=== PATIENT | female | born 1930 | race Caucasian/White ===

== ENCOUNTER 2016-07-30 11:32 | Inpatient (IN) | payer MEDICARE ==
--- NOTE | 2016-07-30 14:31 | RAD ---
Indication: Hypoglycemia. Single frontal view of the chest performed at 1359 hours was reviewed. Comparison is made with previous exam dated March 05, 2015. No mediastinal shift is noted. Airspace disease is noted in the left base. Right lung field is clear. No pneumothorax is noted. IMPRESSION: FINDINGS CONSISTENT WITH LEFT LOWER LOBE PNEUMONIA. ELEVATED LEFT HEMIDIAPHRAGM IS NOTED.
[2016-07-30] MEDS: NS 0.9% 1000 ML* 1,000 ML IV SCH (14:42)
[2016-07-30 16:00] LABS: Hematocrit 44 % (35-47); Hemoglobin 14.3 g/dl (12.0-16.0); Mean Corpuscular HGB Conc 32 g/dl (31-36); Mean Corpuscular Hemoglobin 29 pg (27-31); Mean Corpuscular Volume 91 fL (80-97); Mean Platelet Volume 10 um3 (7.4-10.4); Red Blood Count 4.87 10^6/ul (4.0-5.4); Red Cell Distribution Width 14 % (10.5-15); White Blood Count 9.8 10^3/ul (3.5-10.8)
[2016-07-30 16:18] LABS: Urine Bacteria 1+ (Absent); Urine Bilirubin Negative (Negative); Urine Glucose Negative (Negative); Urine Nitrite Negative (Negative)
[2016-07-30 16:19] LABS: Albumin 3.3 g/dL (3.2-5.2); BUN/Creatinine Ratio 15.8 (8-20); C Reactive Protein 3.82 mg/L (< 5.00); Calcium 9.2 mg/dL (8.6-10.3); EGFR African American 72.2 (>60); EGFR Non-African American 56.2 (>60); Globulin 3.4 g/dL (2-4); Magnesium 2.1 mg/dL (1.9-2.7); Potassium 4.4 mmol/L (3.5-5.0); Total Bilirubin 0.4 mg/dL (0.2-1.0); Total Protein 6.7 g/dL (6.4-8.9)
[2016-07-30 16:22] LABS: Troponin I 0.01 ng/mL (<0.04)
[2016-07-30 16:57] LABS: TSH (Thyroid Stimulating Horm) 1.2 mcIU/mL (0.34-5.60)
[2016-07-30] MEDS ORDERED: cefTRIAXone(*) 1 GM in NS 0.9% 50 ML* 50 ML IVPB ONE (17:01)
[2016-07-30] MEDS ORDERED: Levofloxacin 750 MG IVPREMIX(* 750 MG/150 ML BAG IVPB ONE (17:02)
--- NOTE | 2016-07-30 17:38 | ED ---
Florentino Looney Billy, scribed for Jack Haywood MD on 07/30/16 at 1340 . HPI Diabetic - HPI Summary HPI Summary: Patient is an 85 year-old female coming to [facility] presenting with a diabetic complaint since approximately 1830 last night. Family states that the patient was "shakey" at that time, and BG was measured at 490. Family reports that the patient takes long-acting insulin in the mornings, and BG improved later that evening. However, when she awoke this morning, BG was measured at 67 and she continued to have diffuse shakes. She denies any fevers, chills, cough, or chest congestion. Denies urinary frequency, urgency, or dysuria. Family notes diarrhea this morning. Patient complaints of general weakness. - History Of Current Complaint Chief Complaint: EDDiabeticProb Time Seen by Provider: 07/30/16 11:46 Hx Obtained From: Patient Onset/Duration: Gradual Onset, Lasting Hours, Still Present Timing: Constant Severity Initially: Moderate Severity Currently: Moderate Character: Alert, Other - general weakness Aggravating: Nothing Alleviating: Nothing - Allergies/Home Medications Allergies/Adverse Reactions: Allergies Allergy/AdvReac Type Severity Reaction Status Date / Time Iodinated Contrast Media Allergy Severe UNKNOWN Verified 03/25/12 09:34 [CONTRAST DYE] REACTION Codeine Allergy Unknown Verified 01/17/15 16:21 Reaction Details Penicillins Allergy Unknown Verified 01/17/15 16:21 Reaction Details Azithromycin AdvReac Nausea Verified 01/17/15 14:29 CI Pigment Blue 63 AdvReac N/V Verified 01/17/15 13:40 [From Pradaxa] PMH/Surg Hx/FS Hx/Imm Hx Endocrine/Hematology History: Reports: Hx Anticoagulant Therapy, Hx Diabetes, Hx Thyroid Disease Cardiovascular History: Reports: Hx Hypertension, Other Cardiovascular Problems/ Disorders - IDDM II, AFIB on monitor Respiratory History: Reports: Hx Chronic Bronchitis GI History: Reports: Hx Gastroesophageal Reflux Disease - ON MEDICATION FOR, Hx Hiatal Hernia, Hx Irritable Bowel, Hx Ulcer - IN THE PAST Musculoskeletal History: Reports: Hx Arthritis, Other Musculoskeletal History - s4 FX Denies: Hx Osteoporosis Sensory History: Reports: Hx Contacts or Glasses Denies: Hx Hearing Aid Opthamlomology History: Reports: Hx Contacts or Glasses Neurological History: Reports: Hx Dementia, Other Neuro Impairments/Disorders - forgetful - Cancer History Cancer Type, Location and Year: rt breast radical mastectomy with chemo Hx Chemotherapy: Yes - BREAST Hx Radiation Therapy: No - Surgical History Surgery Procedure, Year, and Place: RIGHT RADICAL MASTECTOMY. LEFT KNEE BULGE REMOVED. AFIB ABLATION-AND ALSO HAD BLEEDING AROUND HEART- SURGERY TO STOP BLEEDING [place]. APPENDECTOMY. OVARIAN CYST REMOVED. TUBAL LIGATION. TONSILLECTOMY- AGE 32 Hx Anesthesia Reactions: Yes - CODEINE CAUSED N/V Infectious Disease History: No Infectious Disease History: Denies: Traveled Outside the [place] in Last 30 Days - Family History Known Family History: Positive: Other - breast cancer - Social History Alcohol Use: None Substance Use Type: Reports: None Hx Tobacco Use: No Smoking Status (MU): Never Smoked Tobacco Review of Systems Positive: Other - shaking. Negative: Chills Negative: Chest Pain Negative: Cough Positive: Diarrhea. Negative: Abdominal Pain Negative: dysuria, frequency, urgency Positive: Weakness All Other Systems Reviewed And Are Negative: Yes Physical Exam Triage Information Reviewed: Yes Vital Signs On Initial Exam: Temp Pulse Resp BP Pulse Ox 98.9 F 57 13 130/56 97 07/30/16 12:11 07/30/16 12:11 07/30/16 12:11 07/30/16 12:11 07/30/16 12:11 Vital Signs Reviewed: Yes Appearance: Positive: Well-Appearing, No Pain Distress Skin: Positive: Warm, Skin Color Reflects Adequate Perfusion, Dry Head/Face: Positive: Normal Head/Face Inspection Eyes: Positive: EOMI, ALISTAIR ENT: Positive: Normal ENT inspection Neck: Positive: Supple, Nontender Respiratory/Lung Sounds: Positive: Clear to Auscultation, Breath Sounds Present Cardiovascular: Positive: Bradycardia Abdomen Description: Positive: Nontender, Soft Musculoskeletal: Positive: Strength/ROM Intact - Patient is shaky when asked to sit up. Neurological: Positive: Normal, Sensory/Motor Intact, Alert, Oriented to Person Place, Time Psychiatric: Positive: Affect/Mood Appropriate - [place] Coma Scale Coma Scale Total: 15 Diagnostics - Vital Signs Vital Signs Temp Pulse Resp BP Pulse Ox 07/30/16 12:11 98.9 F 57 13 130/56 97 07/30/16 12:03 98.9 F 58 17 130/56 94 07/30/16 12:00 57 13 130/56 95 07/30/16 11:43 14 133/49 - Laboratory Lab Results: Lab Results 07/30/16 Range/Units 11:44 POC Glucose (mg/dL) 121 H (74-106) mg/dL Result Diagrams: 07/30/16 15:50 07/30/16 15:50 Lab Statement: Any lab studies that have been ordered have been reviewed, and results considered in the medical decision making process. - Radiology CXR Radiology Interpretation Completed By: Radiologist - FINDINGS CONSISTENT WITH LEFT LOWER LOBE PNEUMONIA. ELEVATED LEFT HEMIDIAPHRAGM IS NOTED. Re-Evaluation - Re-Evaluation First Eval Re-Evaluation Time: 16:56 Change: Improved Diabetic Course/Dx - Course Assessment/Plan: PATIENT WEAK IN ED. ADMIT HOSPITALIST STABLE. - Diagnoses Provider Diagnoses: Pneumonia, Weakness - Physician Notifications Discussed Care of Patient With: Dr. Barros (hospitalist) @ 1700: accepts admission. Discharge - Discharge Plan Condition: Stable Disposition: ADMITTED TO [facility] documentation as recorded by the Florentino archuleta Billy accurately reflects the service I personally performed and the decisions made by me, Jack Haywood MD.
--- NOTE | 2016-07-30 18:26 | PN ---
Hospitalist Progress Note HOSPITALIST ADDENDUM Case reviewed and d/w Ashu PALUMBO. Mrs. Paredes is an 85yo F with PMH of breast CA, Afib, type 2 DM (on insulin) BIB family due to tremors and glucose fluctuation. Labs and imaging reviewed. CxR shows a LLL infiltrate but her respiratory symptoms are minimal. Will admit, treat pneumonia, monitor glucose. Will check [employer]ACILITY ATTENDANT imaging, but no clear etiology for her tremors at this time. Agree with current management.
[2016-07-30] MEDS: Azithromycin IV(*) 500 MG in NS 0.9% 250 ML* 250 ML IVPB SCH (18:30)
--- NOTE | 2016-07-30 19:30 | RAD ---
Indication: Tremor. CT of the brain was performed without IV contrast. Comparison is made with previous exam dated January 12, 2013. Ventricular structures are midline. No midline shift is noted. The extra-axial spaces are unremarkable. There is no evidence of intracranial mass or hemorrhage. No other high or low density lesions are identified. The bony calvaria are otherwise unremarkable. Overall no changes noted since previous exam of January 12, 2013. IMPRESSION: No intracranial mass or hemorrhage is noted. Atrophy is noted.
--- NOTE | 2016-07-30 21:12 | HP ---
ADMISSION HISTORY AND PHYSICAL: DATE OF ADMISSION: 07/30/16 PRIMARY CARE PROVIDER: Not listed. ADMITTING PROVIDER: DEEPALI George SUPERVISING PHYSICIAN: Aziza Mcgarry MD.* (DICTATED BY DEEPALI GEORGE) CHIEF COMPLAINT: Shaking. HISTORY OF PRESENT ILLNESS: This is an 85-year-old female with mild dementia, insulin-dependent diabetes, hypothyroidism, remote history of breast cancer, status post mastectomy as well as diastolic heart failure, hypertension, and hyperlipidemia who presented to the emergency department with complaints of episodes of shaking. First episode occurred spontaneously last night while seated and was witnessed by her . All 4 extremities were involved. The patient maintained normal level of consciousness and reported that her movements were uncontrollable. She had no other associated neurologic complaints in terms of recent weakness, numbness, tingling, or fatigue. She denies any recent acute illness including abdominal pain, nausea, vomiting or diarrhea. Perhaps a slightly worse cough than what was typical for her, but denies dyspnea or chest pain. At the time that the shaking episode occurred, her checked her glucose and it was measured at 490 mg/dL. She does not have any short-acting insulin and nothing was given at the time. The decision was made to just wait it out and see if she is improved. In the morning, they checked her glucose again and it was 67 mg/dL and she had another shaking episode. She was given apple juice and peanut butter at that time in an attempt to increase her glucose and her glucose darin into the mid 100s and she had another shaking episode. In the emergency department, her shaking episodes are easily reproduced with position changes. As simple as raising the head of her bed can induce a generalized shaking episode. The patient denies any complaints during them. She has had no history of similar symptoms and again no recent illness or other acute neurologic complaints. PAST MEDICAL HISTORY: 1. Atrial fibrillation, anticoagulated with Coumadin. 2. Hypertension. 3. Insulin dependent diabetes. 4. Hypothyroidism. 5. Hyperlipidemia. 6. Remote history of breast cancer status post mastectomy. 7. Tscd-vk-hxjpgfip dementia. 8. Diastolic heart failure. PAST SURGICAL HISTORY: 1. Right mastectomy. 2. Appendectomy. 3. Tubal ligation. HOME MEDICATIONS: 1. Aricept 5 mg p.o. daily. 2. Lexapro 20 mg p.o. daily. 3. Breo Ellipta 1 puff daily. 4. Lasix 40 mg p.o. daily. 5. Insulin degludec, which is a 200 units/mL solution with instructions to take 40 units subcu daily. 6. Levothyroxine 100 mcg p.o. daily. 7. Lisinopril 2.5 mg p.o. daily. 8. Namenda 10 mg p.o. twice daily. 9. Metoprolol succinate 25 mg p.o. daily. 10. Potassium chloride 10 mEq p.o. daily. 11. Aciphex 20 mg p.o. daily. 12. Crestor 5 mg p.o. daily. 13. Coumadin 1 mg alternating with 2 mg. SOCIAL HISTORY: The patient lives at home with her . Her children including her daughter and son as well as her xjfehuhr-km-jez are quite involved in her care and live locally. She denies any smoking history and no regular alcohol consumption. REVIEW OF SYSTEMS: As listed above in HPI. PHYSICAL EXAMINATION GENERAL: This is a very pleasant elderly female, in no acute distress, accompanied by family. VITAL SIGNS: Initial vitals; temperature 98.9 degrees Fahrenheit, pulse 58 beats per minute, respiratory rate 17 per minute, oxygen saturation 94% on room air, and blood pressure 130/56 mmHg. HEENT: The patient has dentures in place. Mucous membranes are pink and moist. NECK: Neck is supple and free of lymphadenopathy without JVD. RESPIRATORY: Lungs are fairly clear to auscultation without wheezes, crackles, or rhonchi. CARDIOVASCULAR: Heart has a regular rate and rhythm without obvious murmurs, rubs, or gallops. ABDOMEN: Abdomen is soft and nontender to palpation. EXTREMITIES: The patient has 1 to 2+ lower extremity edema bilaterally. PSYCH: The patient is alert, unsure of her level of orientation, but she seems to be quite easily confused. SKIN: Limited exam shows no concerning rashes or lesions. NEURO: The patient has an inducible tremor with any sort of exertion. Specifically when she is asked to provide the level of effort such as rolling onto her side or attempting to sit up, she gets a generalized rhythmic movement throughout all of her extremities. She does not complain of any pain or discomfort with this and she remained as an appropriate level of alertness. The shaking will resolve as soon as she is laid back down into a dependent position. Cranial nerves II through XII are intact and she has no other obvious focal neurologic deficits. LABORATORY EVALUATION: CBC shows white blood cell count of 9800, hemoglobin of 14.3 g/dL, and a platelet count of 131,000. INR of 1.37. Comprehensive metabolic panel is unremarkable with sodium of 136 mmol/L, potassium 4.4, BUN 15 , creatinine 0.95 with an estimated GFR of 56. Random glucose of 145 mg/dL. Lactic acid of 1.1. Transaminases and total bilirubin within normal limits. Magnesium normal at 2.1. TSH normal at 1.2. Troponin negative at 0.01. CRP unremarkable at 3.8. Urinalysis is positive for leukocyte esterase and otherwise negative. IMAGING: Chest x-ray shows left lower lobe infiltrate. EKG is pending. CT of the head is pending. ASSESSMENT AND PLAN: This is an 85-year-old female with insulin dependent diabetes, hypothyroidism, pmgv-ct-wqfeedlf dementia, diastolic heart failure, remote history of breast cancer, atrial fibrillation anticoagulated with Coumadin, hypertension, hyperlipidemia who presents with the shaking episodes, has evidence of a left lower lobe pneumonia appreciated on chest x-ray. The patient will be admitted to observation status for a community-acquired pneumonia and tremor activity. 1. Community-acquired pneumonia - evidence of left lower lobe infiltrate on chest x-ray. No leukocytosis. The patient denies any really recent acute changes. She does have a cough, but seems like that is chronic for her. CRP is unremarkable. Procalcitonin is pending. We will plan to empirically treat for a pneumonia in this case based on her chest x-ray. We will plan to repeat labs again tomorrow. 2. Generalized tremor - the patient has an inducible, seemingly intention type tremor. She requested a CT scan of her brain. Requested neurologic consultation. No electrolyte disturbance. This seems unlikely to be seizure activity based on its appearance. It does not seem to be rigors or really associated with acute infarction as she does not appear to be severely ill nor is she febrile and the tension is clearly inducible and resolves with a change in position. 3. Abnormal urinalysis - urine culture is pending at this time. 4. Atrial fibrillation. The patient is appropriately rate controlled at this time. Anticoagulated with Coumadin, but her INR is significantly subtherapeutic. We will not plan to bridge her issues, not high risk, but we will simply increase her dose of Coumadin and monitor her INR daily. 5. Hypothyroidism - TSH is within normal limits. 6. History of chronic diastolic heart failure without evidence of acute exacerbation. We will plan to continue her home Lasix dosing. 7. Remote history of breast cancer with right mastectomy and chronic right- sided lymphedema. 8. Idok-gi-blluoxik dementia without significant behavioral concerns. 9. Hypertension. 10. Hyperlipidemia. 11. Code status is full. 12. Healthcare proxy is the patient's . 13. DVT prophylaxis. This patient is anticoagulated with Coumadin. We will increase her dose, but does not require additional prophylaxis. DISPOSITION: The patient is being admitted to observation status with likely discharge tomorrow following neurology consultation. DEEPALI GEORGE [id number]/CPS #: [id number] MTDMorelia
[2016-07-31] MEDS: Memantine TAB* 10 MG PO SCH ×3 (00:32→20:26)
[2016-07-31] MEDS: Azithromycin IV(*) 500 MG in NS 0.9% 250 ML* 250 ML IVPB SCH ×3 (00:45→20:25)
[2016-07-31] MEDS: NS 0.9% 1000 ML* 1,000 ML IV SCH ×3 (00:46→17:30)
[2016-07-31] MEDS: Levothyroxine TAB* 100 MCG TAB PO SCH (05:56)
[2016-07-31 09:38] LABS: Hematocrit 40 % (35-47); Hemoglobin 13.2 g/dl (12.0-16.0); Mean Corpuscular HGB Conc 33 g/dl (31-36); Mean Corpuscular Hemoglobin 30 pg (27-31); Mean Corpuscular Volume 90 fL (80-97); Mean Platelet Volume 11 um3 (7.4-10.4); Red Blood Count 4.47 10^6/ul (4.0-5.4); Red Cell Distribution Width 14 % (10.5-15); White Blood Count 8.9 10^3/ul (3.5-10.8)
[2016-07-31 09:55] LABS: BUN/Creatinine Ratio 15.7 (8-20); Calcium 8.6 mg/dL (8.6-10.3); EGFR African American 77.9 (>60); EGFR Non-African American 60.6 (>60); Potassium 3.9 mmol/L (3.5-5.0)
[2016-07-31] MEDS: Metoprolol Succinate XL TAB* 25 MG PO SCH (10:05)
[2016-07-31] MEDS: Lisinopril TAB* 5 MG PO SCH (10:05)
[2016-07-31] MEDS: Furosemide TAB* 40 MG PO SCH (10:06)
[2016-07-31] MEDS: CMCS Escitalopram (NF) 10 MG TAB PO SCH (10:07)
[2016-07-31] MEDS: Donepezil TAB* 5 MG PO SCH (10:07)
[2016-07-31] MEDS: Atorvastatin* 10 MG TAB PO SCH (10:08)
[2016-07-31] MEDS: Potassium Chlor TAB* 10 MEQ TAB.ER PO SCH (10:09)
[2016-07-31] MEDS: Fluticasone/Vilanterol MDI(NF) 100/25 MDI INH SCH (10:36)
[2016-07-31] MEDS: INSULIN DEGLUDEC SUBCUT SCH (11:21)
--- NOTE | 2016-07-31 15:47 | CONS ---
NEUROLOGY CONSULTATION REPORT: DATE OF CONSULT: 07/31/16 REASON FOR CONSULT: Generalized shaking. REQUESTING PROVIDER: DEEPALI Duran HISTORY OF PRESENT ILLNESS: The patient is an 85-year-old right-handed female who was brought to the hospital because of episodes described as shaking in the body. First episode occurred the night before admission, on Wednesday night, when she was sitting in a chair and when she was trying to get up her body started to having a generalized shaking. She remained awake and alert throughout that episode that lasted for a few minutes but was just not able to stop the shaking. Her blood glucose was checked at that time and was not low. She had another episode yesterday morning and the glucose was 67 at that time. In the ED, the episodes were reproducible when she was made to change her position from lying to sitting up. Initial workup in the ED showed some radiographic findings of pneumonia. She feels better today and her symptoms have not been as severe as yesterday. She did not have similar episodes in the past. At her baseline, she uses a walker at home for ambulation. She need help with her showers and dressing at home. PAST MEDICAL HISTORY: Significant for: 1. AFib, on Coumadin. 2. Diabetes type 2. 3. Hypothyroidism. 4. Hyperlipidemia. 5. Hypertension. 6. History of breast cancer, status post mastectomy. 7. Mild dementia. 8. Diastolic heart failure. 9. Chronic Lymphedema in the right arm post right mastectomy (stable) PAST SURGICAL HISTORY: 1. Right mastectomy. 2. Appendectomy. 3. Tubal ligation. ALLERGIES: 1. IODINE CONTRASTS. 2. CODEINE. 3. PENICILLIN. 4. AZITHROMYCIN. FAMILY HISTORY: Mother had history of breast cancer. There is no significant neurological history in the family. SOCIAL HISTORY: The patient lives at home with her . She does not have history of smoking. No history of alcohol use. REVIEW OF SYSTEMS: A complete review of systems was performed and other than what mentioned above is negative. PHYSICAL EXAM: Blood pressure 139/51, temperature 98.4, heart rate 67, respiratory rate 20, and oxygen 95%. The patient is awake, alert, and oriented to time and place. Pupils are symmetric and reactive to light. Visual meredith are intact by confrontation. Extraocular movements are intact. No nystagmus were noted. Face is symmetric. V1 to V3 is intact to light touch and pinprick. Tongue is in midline. Palate elevates upwards. There is no resting tremor. There is no action tremor on hkhnxt-ac-lymr. There is no postural tremor. Muscle tone is normal. The right arm is slightly larger in diameter compared to the left arm, which is chronic due to the mastectomy on the right side. Rapid alternative movements are intact. Muscle strength is 5/5 throughout. There is no pronator drift. Sensation is intact to light touch, pinprick, and vibration in the upper and lower extremities. Deep tendon reflexes are 2+ in the upper and lower extremities and are symmetric. Heel-to- ren is intact bilaterally. Upon standing and sitting up, the patient feels slightly lightheaded and 'dizzy'. She is able to stand up. After standing up for about 30-60 seconds, she starts to have some bouncing like movements in the legs and the entire body, which can be stopped if she is helped to maintain her position. She is able to take a few steps with assistance with relatively narrow- based gait. LABORATORY DATA: Sodium 140, potassium 3.9, BUN 14, and creatinine 0.9. INR 1.81. WBC 8.9, hemoglobin 13.2, hematocrit 40, and platelets 135. Urine is 1+ bacteria, trace rbc, and trace wbc. DIAGNOSTIC STUDIES/IMAGING: Brain CT shows mild atrophy with no acute findings. Chest x-ray yesterday, on 07/30/16, showed left lower lobe pneumonia and elevated left hemidiaphragm. ASSESSMENT AND PLAN: The patient is an 85-year-old female with baseline dementia and some baseline walking problem at home (ambulating with a walker), has been noted to have a few episodes of shaking upon repositioning to a sitting or standing since about 2 days ago. She is better today. Currently, the neurological exam is unremarkable and nonfocal. The episodes are reproducible by standing up for more than 30-60 seconds, manifesting as bouncing movements on her legs. The patient also feels symptomatic ( lightheadedness and dizziness) upon change of position, specially standing up. Otherwise, the neurological exam is intact. I have the impression that these episodes are related to the patient's general deconditioning and general fatigue with some contribution of probably orthostatic hypotension. Neurologically, I do not believe there is any underlying pathology that can explain her symptoms. [id number] #: [id number] MTDD
[2016-07-31] MEDS: Warfarin TAB(*) 2 MG PO SCH (17:02)
--- NOTE | 2016-07-31 17:54 | PN ---
Subjective Date of Service: 07/31/16 Interval History: Patient reports improvement, but still unsteady on her feet and can reproduce the tremor with standing for ~30 sec. She denies cough, SOB, abdominal pain, n/ v. Objective Active Medications: Acetaminophen (Tylenol Tab*) 650 mg PO Q4H PRN PRN Reason: FEVER/PAIN Atorvastatin Calcium (Lipitor*) 10 mg PO DAILY [facility] PRN Reason: Protocol Last Admin: 07/31/16 10:08 Dose: 10 mg Donepezil HCl (Aricept Tab*) 5 mg PO DAILY [facility] Last Admin: 07/31/16 10:07 Dose: 5 mg Escitalopram Oxalate (Lexapro (Nf)) 20 mg PO DAILY [facility] Last Admin: 07/31/16 10:07 Dose: 20 mg Fluticasone/Vilanterol (Breo Ellipta Mdi 100/25(Nf)) 1 puff INH DAILY [facility] Last Admin: 07/31/16 10:36 Dose: Not Given Furosemide (Lasix Tab*) 40 mg PO DAILY [facility] Last Admin: 07/31/16 10:06 Dose: 40 mg Sodium Chloride (Ns 0.9% 1000 Ml*) 1,000 mls @ 150 mls/hr IV PER RATE [facility] Last Admin: 07/31/16 17:30 Dose: 150 mls/hr Ceftriaxone Sodium 1,000 mg/ (Sodium Chloride) 50 mls @ 200 mls/hr IVPB Q24H [facility] Last Admin: 07/31/16 17:02 Dose: 200 mls/hr Azithromycin 500 mg/ Sodium (Chloride) 250 mls @ 250 mls/hr IVPB 2100 [facility] Last Admin: 07/31/16 00:45 Dose: 250 mls/hr Levothyroxine Sodium (Synthroid Tab*) 100 mcg PO 0600 [facility] Last Admin: 07/31/16 05:56 Dose: 100 mcg Lisinopril (Prinivil Tab*) 2.5 mg PO DAILY [facility] Last Admin: 07/31/16 10:05 Dose: 2.5 mg Memantine (Namenda Tab*) 10 mg PO BID [facility] Last Admin: 07/31/16 10:08 Dose: 10 mg Metoprolol Succinate (Toprol Xl Tab*) 25 mg PO DAILY [facility] Last Admin: 07/31/16 10:05 Dose: 25 mg Pto Nf Med* (Insulin Degludec [Tresiba Flextouch] 40 Unit) 40 unit SUBCUT QAM [facility] Last Admin: 07/31/16 11:21 Dose: 40 unit Potassium Chloride (Klor Con Er Tab*) 10 meq PO DAILY [facility] Last Admin: 07/31/16 10:09 Dose: 10 meq Warfarin Sodium (Coumadin Tab(*)) 2 mg PO 1700 [facility] PRN Reason: Protocol Last Admin: 07/31/16 17:02 Dose: 2 mg Vital Signs: Temp Pulse Resp BP Pulse Ox 98.9 F 74 16 151/52 94 07/31/16 15:18 07/31/16 15:18 07/31/16 15:38 07/31/16 15:18 07/31/16 15:18 Appearance: Well appearing elderly female in NAD. Accompanied by her daughter. Sitting up in bed. Respiratory: Symmetrical Chest Expansion and Respiratory Effort Cardiovascular: NL Sounds; No Murmurs; No JVD, RRR Abdominal: NL Sounds; No Tenderness; No Distention Extremities: No Edema Neurological: - - tremor reproduced with some stress. Alert, but not oriented Result Diagrams: 07/31/16 09:19 07/31/16 09:19 Additional Lab and Data: Lab Results 07/30/16 Range/Units 11:44 POC Glucose (mg/dL) 121 H (74-106) mg/dL Diagnostic Imaging: CXR - LLL infiltrate CT brain - NAD Assess/Plan/Problems-Billing Assessment: This is an 85 yo female with dementia, HTN, DM, hypothyroidism, HLD, and chronic diastolic HF who presented with concerns of a generalized tremor that started spontaneously. - Patient Problems (1) Tremor Comment: Significantly improved but still reproducible during times of stress Appreciate neuro consult who believes this may just be manufacturer's service representative of systemic fatigue v. orthostatis Ordered orthostatic vital signs and requested PT consult Patient still feels too unsteady to safely return home (2) Pneumonia Comment: Evidence of LLL infiltrate on CXR Patient is not terribly symptomatic, but is a poor historian Treating for CAP pathogens with Ceftriaxone and Azithro (3) Atrial fibrillation Comment: Rate controlled Anticoagulated on Coumadin, currently subtherapeutic Coumadin increased to 2 mg daily (up from 2mg alternating with 1mg) Continue to monitor INR daily (4) CHF (congestive heart failure) Comment: Chronic diastolic failure without evidence of acute exacerbation (5) DM type 2 (diabetes mellitus, type 2) Comment: Cont basal insulin and prn SS coverage (6) Dementia Comment: cont Namenda, Aricept No behavioral concerns (7) Hypothyroidism Comment: cont Synthroid TSH 2.1 Status and Disposition: Convert to inpatient. Pending PT eval. Likely ready for dc tomorrow.
[2016-07-31] MEDS ORDERED: cefTRIAXone VIAL(*) 1,000 MG in NS 0.9% 50 ML* 50 ML IVPB SCH (18:00)
[2016-07-31] MEDS: Acetaminophen TAB* 325 MG PO PRN (22:03)
[2016-08-01] MEDS: Levothyroxine TAB* 100 MCG TAB PO SCH (05:37)
[2016-08-01] MEDS ORDERED: ceFUROXime TAB(*) 250 MG PO SCH (09:00)
[2016-08-01] MEDS ORDERED: Azithromycin TAB* 250 MG PO SCH (09:00)
[2016-08-01] MEDS: Fluticasone/Vilanterol MDI(NF) 100/25 MDI INH SCH (10:32)
[2016-08-01] MEDS: Potassium Chlor TAB* 10 MEQ TAB.ER PO SCH (11:02)
[2016-08-01] MEDS: Memantine TAB* 10 MG PO SCH ×2 (11:02→23:00)
[2016-08-01] MEDS: Metoprolol Succinate XL TAB* 25 MG PO SCH (11:02)
[2016-08-01] MEDS: CMCS Escitalopram (NF) 10 MG TAB PO SCH (11:02)
[2016-08-01] MEDS: Donepezil TAB* 5 MG PO SCH (11:02)
[2016-08-01] MEDS: Furosemide TAB* 40 MG PO SCH (11:03)
[2016-08-01] MEDS: Atorvastatin* 10 MG TAB PO SCH (11:03)
[2016-08-01] MEDS: Lisinopril TAB* 5 MG PO SCH (11:03)
[2016-08-01] MEDS: INSULIN DEGLUDEC SUBCUT SCH (11:04)
[2016-08-01] MEDS ORDERED: Ondansetron TAB* 4 MG PO PRN (12:28)
--- NOTE | 2016-08-01 14:12 | DS ---
DISCHARGE SUMMARY: DATE OF ADMISSION: 07/30/16 DATE OF DISCHARGE: 08/01/16 ACTUAL DATE OF DISCHARGE: 08/02/16 PRIMARY CARE PROVIDER: Not listed. CONSULTING NEUROLOGIST: Dr. Kelly DISCHARGING PROVIDER: DEEPALI George SUPERVISING PHYSICIAN: Dr. Aziza Mcgarry * (DICTATED BY DEEPALI GEORGE) PRIMARY DISCHARGE DIAGNOSES: 1. Pneumonia. 2. Tremor, likely due to systemic fatigue related to acute illness. SECONDARY DISCHARGE DIAGNOSES: 1. 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 2. Moderate dementia without significant behavioral concerns. 3. Chronic diastolic heart failure without acute exacerbation. 4. Chronic atrial fibrillation, anticoagulated on Coumadin, INR is subtherapeutic at admission. 5. Hypertension. 6. Hyperlipidemia. 7. History of breast cancer, status post right mastectomy. DISCHARGE MEDICATIONS: 1. Azithromycin 250 mg p.o. daily. 2. Aricept 5 mg p.o. daily. 3. Lexapro 20 mg p.o. daily. 4. Breo Ellipta 1 puff inhaled daily. 5. Furosemide 40 mg p.o. daily. 6. Insulin degludec 200 units/mL and 40 units subcu daily. 7. Levothyroxine 100 mcg p.o. daily. 8. Lisinopril 2.5 mg p.o. daily. 9. Namenda 10 mg p.o. twice daily. 10. Metoprolol succinate 25 mg p.o. daily. 11. Potassium chloride 10 mEq p.o. daily. 12. Aciphex 20 mg p.o. daily. 13. Crestor 5 mg p.o. daily. 14. Coumadin 2 mg p.o. daily. 15. Cefuroxime 500 mg p.o. b.i.d. Medication Changes: 1. Azithromycin for 3 additional days. 2. Cefuroxime for 7 additional days. 3. Increase Coumadin to 2 mg daily. HOSPITAL IMAGIN. Chest x-ray shows a left lower lobe infiltrate. 2. CT of the brain shows no acute process. HOSPITAL COURSE: This is an 85-year-old female with a history of moderate dementia, chronic atrial fibrillation, hypertension, insulin-dependent diabetes , hyperlipidemia, chronic diastolic heart failure, who presented to the emergency department with concerns of a tremor. The patient's symptoms had started the night prior where she had a generalized shaking episode while seated in her armchair. Her glucose was very high at that time and the assumption was that perhaps this was secondary to hyperglycemia. The next morning, her glucose had improved, but all the way down to 67 mg/dL and she had another episode of shaking at that time and then after some apple juice and a peanut butter sandwich, glucose came back up into the mid 100s and she had another shaking episode. She subsequently was brought to the emergency department for further evaluation. The patient denied any other recent acute illness or associated neurologic findings. Initial chest x-ray demonstrated evidence of a left lower lobe infiltrate. She was without leukocytosis and afebrile. The patient underwent CT scan of the brain, which showed no acute pathology. She was subsequently treated for community- acquired pneumonia and requested consultation from Neurology. Upon reaching the emergency department, the patient's tremor was reproducible with position changes as simple as asking her to roll over for a lung exam, she began with a generalized shaking in all extremities. No change in level of consciousness and no other acute complaints at that time. The following morning after admission, her tremor had improved to the point that it would be reproduced after approximately 30 seconds of standing, but smaller movements were no longer as bothersome. Neurologist, Dr. Kelly, evaluated the patient and felt that the tremor seemed to be systemic in nature and perhaps due to some systemic fatigue, perhaps related to an acute illness. Orthostasis was also considered. Orthostatic vital signs were negative, however. The patient was evaluated by Physical Therapy during her hospital stay and did quite well, was able to ambulate approximately 120 feet with the use of a walker and some prompting. DISPOSITION: The patient is being discharged to home, where she lives with her and has a support of her children, who live nearby. Discharged with azithromycin and cefuroxime as described above. She was slightly subtherapeutic on her INR. During her hospital stay, INR was 1.95 at the time of discharge. Coumadin had been increased to 2 mg daily with instructions to repeat an INR early next week. The patient requires followup with her primary care provider within the next week. DEEPALI GEORGE [id number]/[facility] #: [id number] [place]
[2016-08-01] MEDS ORDERED: NS 0.9% 1000 ML* 1,000 ML IV SCH (14:30)
--- NOTE | 2016-08-01 14:32 | PN ---
Hospitalist Progress Note Patient began to feel nauseated later in the morning and did not eat anything for lunch. Denied abdominal pain. No vomiting. Some cough. No other acute symptoms. Her discharge was canceled and her IV re-established. Will plan to re-evaluate again tomorrow for potential discharge. Question whether her oral antibiotics may have contributed to her nausea, as it seemed to be shortly after her morning dose that she became symptomatic.
[2016-08-01] MEDS ORDERED: cefTRIAXone VIAL(*) 1,000 MG in NS 0.9% 50 ML* 50 ML IVPB SCH (15:00)
[2016-08-01] MEDS: Acetaminophen TAB* 325 MG PO PRN (16:47)
[2016-08-01] MEDS ORDERED: Dextrose 50% Syringe 50 ML* 25 GM/50 ML SYRINGE IV PUSH PRN (16:53)
[2016-08-01] MEDS: Warfarin TAB(*) 2 MG PO SCH (17:17)
[2016-08-01] MEDS ORDERED: Insulin LISPRO* 1 UNITS UNIT SUBCUT ONE ×2 (18:14→18:20)
[2016-08-02] MEDS: Levothyroxine TAB* 100 MCG TAB PO SCH (05:24)
[2016-08-02] MEDS: Fluticasone/Vilanterol MDI(NF) 100/25 MDI INH SCH (07:06)
[2016-08-02] MEDS: Insulin LISPRO* 1 UNITS UNIT SUBCUT SCH ×2 (07:56→13:09)
[2016-08-02] MEDS ORDERED: DOXYcycline IV* 100 MG in NS 0.9% 250 ML* 250 ML IVPB SCH (08:30)
[2016-08-02] MEDS ORDERED: Azithromycin IV(*) 250 MG in NS 0.9% 250 ML* 250 ML IVPB SCH (09:00)
[2016-08-02] MEDS: Atorvastatin* 10 MG TAB PO SCH (09:27)
[2016-08-02] MEDS: Potassium Chlor TAB* 10 MEQ TAB.ER PO SCH (09:27)
[2016-08-02] MEDS: Memantine TAB* 10 MG PO SCH (09:27)
[2016-08-02] MEDS: CMCS Escitalopram (NF) 10 MG TAB PO SCH (09:27)
[2016-08-02] MEDS: Lisinopril TAB* 5 MG PO SCH (09:28)
[2016-08-02] MEDS: INSULIN DEGLUDEC SUBCUT SCH (09:28)
[2016-08-02] MEDS: Donepezil TAB* 5 MG PO SCH (09:28)
[2016-08-02] MEDS: Metoprolol Succinate XL TAB* 25 MG PO SCH (09:28)
[2016-08-02] MEDS: Furosemide TAB* 40 MG PO SCH (09:28)
[2016-08-02 13:18] VITALS: BP 126/49
--- NOTE | 2016-08-02 19:42 | DS ---
UPDATED DISCHARGE SUMMARY: DATE OF ADMISSION: 07/30/16 DATE OF DISCHARGE: 08/02/16 PRIMARY CARE PROVIDER: Unknown. DISCHARGING PROVIDER: DEEPALI George SUPERVISING PHYSICIAN: Aziza Mcgarry MD * (DICTATED BY DEEPALI GEORGE) PRIMARY DISCHARGE DIAGNOSES: 1. Community-acquired pneumonia. 2. Tremor. UPDATED HOSPITAL COURSE: Please see discharge summary dated 08/01/16 for details of hospital stay. Early afternoon, the day of anticipated discharge, , the patient began to feel quite nauseated and the decision was made to keep her here in the hospital an additional day. She had a slight fever yesterday with maximum temperature of 100.1 degrees Fahrenheit. She had no other acute symptoms. Review of prior records indicated that she becomes nauseated with the use of AZITHROMYCIN, which was given to her orally yesterday morning, which is likely the cause of her nausea. Today, the patient reports improvement. She has had no further nausea and has finished her meals. AZITHROMYCIN was discontinued and replaced with doxycycline. The patient is able to get up and ambulate independently with the use of a walker without significant tremor or complaints of dizziness or weakness. DISPOSITION: The patient is being discharged to home, where she lives with her . She will be discharged with 7 additional days of cefuroxime and doxycycline for continued treatment of community-acquired pneumonia. Again, the doxycycline is replacing her prior AZITHROMYCIN. Please see detailed discharge summary from 08/01/16 for further details. DEEPALI GEORGE [id number]/[facility] #: [id number] [facility]
== END 2016-08-02 15:30 | disposition home or self-care (01) | DRG 194 ==
LOC: ED 11:32 → MEDTELE 17:57 → OBSVTOIN 07-31 14:52
PROVIDERS: ADMIT Internal Medicine; ATTEND Internal Medicine
DX: J18.9 Pneumonia, unspecified organism (principal); I50.32 Chronic diastolic (congestive) heart failure; F03.90 Unspecified dementia, unspecified severity, without behavioral disturbance, psychotic disturbance, mood disturbance, and anxiety; I11.0 Hypertensive heart disease with heart failure; R25.1 Tremor, unspecified; E11.9 Type 2 diabetes mellitus without complications; E78.5 Hyperlipidemia, unspecified; I48.2 Chronic atrial fibrillation; Z79.4 Long term (current) use of insulin; Z79.01 Long term (current) use of anticoagulants; Z85.3 Personal history of malignant neoplasm of breast; Z79.899 Other long term (current) drug therapy; Z88.1 Allergy status to other antibiotic agents; Z88.5 Allergy status to narcotic agent; Z88.0 Allergy status to penicillin; Z91.041 Radiographic dye allergy status
CPT/HCPCS: 36415; 70450; 71010; 80048; 80053; 80061; 81003; 81015; 82550; 82553; 83036; 83605; 83690; 83735; 83880; 84145; 84443; 84484; 85025; 85610; 85730; 86140; 87086; 93005; A9270-GY; G8978-GP-CI; G8979-GP-CI; G8980-GP-CI; J0456; J0696

== ENCOUNTER 2016-09-20 14:17 | Observation (INO) | payer MEDICARE ==
[2016-09-20 17:00] LABS: Urine Bilirubin Negative (Negative); Urine Glucose Negative (Negative); Urine Nitrite Negative (Negative)
[2016-09-20] MEDS ORDERED: NS 0.9% 1000 ML* 1,000 ML IV ONE (17:14)
[2016-09-20] MEDS ORDERED: Acetaminophen TAB* 325 MG PO PRN (21:54)
[2016-09-20] MEDS ORDERED: Dextrose 50% Syringe 50 ML* 25 GM/50 ML SYRINGE IV PUSH PRN (21:57)
[2016-09-20] MEDS ORDERED: Ondansetron INJ* 2 MG/ML VIAL IV PRN (22:03)
--- NOTE | 2016-09-20 22:22 | ED ---
Chacha Looney Janilya, scribed for Demond Trejo MD on 09/20/16 at 1449 . Complex/Multi-Sys Presentation - HPI Summary HPI Summary: An 85 y/o female came in to [facility] presenting w/ a sudden onset of constant shaking since 0400 this morning. She woke up to go to the bathroom and felt the shaking. Pt had these Sx once before in Jul. She was diagnosed w/ pneumonia. Pt is concerned that she might have pneumonia. - History Of Current Complaint Chief Complaint: EDGeneral Time Seen by Provider: 09/20/16 14:28 Hx Obtained From: Patient Onset/Duration: Sudden Onset, Lasting Hours, Still Present Timing: Constant Severity Currently: Moderate Severity Initially: Moderate - Allergies/Home Medications Allergies/Adverse Reactions: Allergies Allergy/AdvReac Type Severity Reaction Status Date / Time Iodinated Contrast Media Allergy Severe UNKNOWN Verified 09/20/16 14:30 [CONTRAST DYE] REACTION Codeine Allergy Unknown Verified 09/20/16 14:30 Reaction Details Penicillins Allergy Unknown Verified 09/20/16 14:30 Reaction Details Pravastatin Allergy See Comment Verified 09/20/16 14:30 Azithromycin AdvReac Nausea Verified 09/20/16 14:30 CI Pigment Blue 63 AdvReac N/V Verified 09/20/16 14:30 [From Pradaxa] Home Medications: Home Medications Cyanocobalamin TAB* [Vitamin B12 TAB*] 500 mcg PO DAILY 09/20/16 [History Confirmed 09/20/16] Loratadine & Pseudoephedrine [Claritin-D 24 Hour 10-240 mg] 1 tab PO QAM [History Confirmed 09/20/16] Warfarin TAB(*) [Coumadin TAB(*)] 1 mg PO DAILY 09/20/16 [History Confirmed ] PMH/Surg Hx/FS Hx/Imm Hx Previously Healthy: No Endocrine/Hematology History: Reports: Hx Anticoagulant Therapy, Hx Diabetes, Hx Thyroid Disease - hypothyroidism Cardiovascular History: Reports: Hx Hypertension, Other Cardiovascular Problems/ Disorders - IDDM II, AFIB on monitor, hyperlipidemia Respiratory History: Reports: Hx Chronic Bronchitis GI History: Reports: Hx Gastroesophageal Reflux Disease - ON MEDICATION FOR, Hx Hiatal Hernia, Hx Irritable Bowel, Hx Ulcer - IN THE PAST Musculoskeletal History: Reports: Hx Arthritis, Other Musculoskeletal History - s4 FX Denies: Hx Osteoporosis Sensory History: Reports: Hx Contacts or Glasses Denies: Hx Hearing Aid Opthamlomology History: Reports: Hx Contacts or Glasses Neurological History: Reports: Hx Dementia, Other Neuro Impairments/Disorders - forgetful - Cancer History Cancer Type, Location and Year: rt breast radical mastectomy with chemo Hx Chemotherapy: Yes - BREAST Hx Radiation Therapy: No - Surgical History Surgery Procedure, Year, and Place: RIGHT RADICAL MASTECTOMY. LEFT KNEE BULGE REMOVED. AFIB ABLATION-AND ALSO HAD BLEEDING AROUND HEART- SURGERY TO STOP BLEEDING [place]. APPENDECTOMY. OVARIAN CYST REMOVED. TUBAL LIGATION. TONSILLECTOMY- AGE 32 Hx Anesthesia Reactions: Yes - CODEINE CAUSED N/V Infectious Disease History: No Infectious Disease History: Denies: Traveled Outside the [place] in Last 30 Days - Family History Known Family History: Positive: Other - breast cancer - Social History Occupation: Retired Lives: With Family Alcohol Use: None Substance Use Type: Reports: None Hx Tobacco Use: No Smoking Status (MU): Never Smoked Tobacco Review of Systems Negative: Fever Neurological: Other - shaking All Other Systems Reviewed And Are Negative: Yes Physical Exam Triage Information Reviewed: Yes Vital Signs On Initial Exam: Initial Vitals Temp Pulse Resp BP Pulse Ox 98.5 F 121 18 145/108 98 09/20/16 14:25 09/20/16 14:25 09/20/16 14:25 09/20/16 14:25 09/20/16 14:25 Vital Signs Reviewed: Yes Appearance: Positive: Well-Appearing, No Pain Distress Skin: Positive: Warm, Skin Color Reflects Adequate Perfusion, Dry Head/Face: Positive: Normal Head/Face Inspection Eyes: Positive: Normal ENT: Positive: Normal ENT inspection Neck: Positive: Supple, Nontender Respiratory/Lung Sounds: Positive: Clear to Auscultation, Breath Sounds Present Cardiovascular: Positive: RRR Abdomen Description: Positive: Nontender, Soft Bowel Sounds: Positive: Present Musculoskeletal: Positive: Normal Neurological: Positive: Other - shaking violently even when she is up Psychiatric: Positive: Affect/Mood Appropriate - [place] Coma Scale Coma Scale Total: 15 Diagnostics - Vital Signs Vital Signs Temp Pulse Resp BP Pulse Ox 09/20/16 14:27 98.5 F 122 16 145/108 98 09/20/16 14:25 98.5 F 121 18 145/108 98 - Laboratory Lab Results: Lab Results 09/20/16 Range/Units 14:35 Urine Color Yellow Urine Appearance Clear Urine pH 7.0 (5-9) Ur Specific [place] 1.006 L (1.010-1.030) Urine Protein Negative (Negative) Urine Ketones Negative (Negative) Urine Blood Negative (Negative) Urine Nitrate Negative (Negative) Urine Bilirubin Negative (Negative) Urine Urobilinogen Negative (Negative) Ur Leukocyte Esterase Negative (Negative) Urine Glucose Negative (Negative) Lab Statement: Any lab studies that have been ordered have been reviewed, and results considered in the medical decision making process. - EKG 1544 Cardiac Rate: Bradycardia - 57 bpm EKG Rhythm: Sinus Bradycardia ST Segment: Non-Specific Complex Multi-Symp Course/Dx Course Of Treatment: Ms. Paredes presented with shaking spells like her last admission. They were felt to be from musle fatigue secondary to a UTI at that time. An IV was started on arrival but blood could not be obtained for lab. We hydrated her with a liter but were still unsuccessful. Eventually I attempted an femoral line using U/S guidance under sterile conditions but was unable to enter the vein. Dr. Michaels was in the department and also made an attempt but was likewise unsuccessful. She will be admitted and a PIC line started tomorrow. - Diagnoses Provider Diagnoses: Coarse tremors Discharge - Discharge Plan Condition: Stable Disposition: ADMITTED TO [facility] The documentation as recorded by the Chacha archuleta Janilya accurately reflects the service I personally performed and the decisions made by , Demond Trejo MD.
--- NOTE | 2016-09-20 22:33 | RAD ---
HISTORY: Cough COMPARISONS: September 18, 2016 VIEWS:1: Single frontal portable view of the chest at 10:05 PM FINDINGS: LINES AND TUBES: None. CARDIOMEDIASTINAL SILHOUETTE: The cardiomediastinal silhouette is normal for portable technique. PLEURA: The costophrenic angles are sharp. No pleural abnormalities are noted. LUNG PARENCHYMA: There is confluent alveolar opacification of left lung base ABDOMEN: The upper abdomen is clear. There is no subphrenic gas. BONES AND SOFT TISSUES: No bone or soft tissue abnormalities are noted. IMPRESSION: LEFT BASILAR ATELECTASIS VERSUS CONSOLIDATION. RECOMMEND FOLLOW-UP UNTIL RESOLUTION TO EXCLUDE UNDERLYING PULMONARY PARENCHYMAL PATHOLOGY.
[2016-09-21] MEDS ORDERED: CMCS - Rosuvastatin (NF) 5 MG TAB PO SCH
[2016-09-21] MEDS ORDERED: ESCITALOPRAM 20 MG PO SCH
[2016-09-21] MEDS ORDERED: CMCS - Escitalopram (NF) 10 MG TAB PO SCH (00:30)
[2016-09-21] MEDS: Donepezil TAB* 5 MG PO SCH ×2 (00:47→08:55)
[2016-09-21] MEDS: Memantine TAB* 10 MG PO SCH ×2 (00:47→08:55)
--- NOTE | 2016-09-21 03:07 | HP ---
HOSPITAL MEDICINE HISTORY AND PHYSICAL: DATE OF ADMISSION: 09/20/16 PRIMARY CARE PHYSICIAN: Dr. Price. ATTENDING PHYSICIAN: Dr. Tejinder Alvarez* (dictation provided by Abbey Mejia NP). CHIEF COMPLAINT: Shaking. HISTORY OF PRESENT ILLNESS: Ms. Paredes is an 85-year-old female with a past medical history of atrial fibrillation, on Coumadin; hypertension; insulin- dependent diabetes; dementia; diastolic congestive heart failure; and recent admission in July of 2016 with an episode of shaking thought to be secondary to pneumonia. Ms. Paredes states that since being discharged on , she has been feeling well. She seemed to have recovered completely from her pneumonia. She reports that last night suddenly in the middle of night when she was getting up to go to the bathroom, she became very shaky again. I note that on last admission, the patient's main complaint on presentation was of severe shaking. I refer you to the dictated H and P and discharge summary from DEEPALI Duran for complete details of that hospitalization but ultimately she was found to have a pneumonia. She was seen in consultation by Neurology given the severity of her shaking symptoms but her symptoms had resolved by that point. They suspected it was secondary to infection and generalized fatigue. At this point, Ms. Paredes denies any fever, cough, chest pain, shortness of breath, nausea, abdominal pain, dysuria, frequency. She has no other complaints today other than the shaking. In the emergency room, despite attempts by located within [facility] nurses, ED providers and Dr. Michaels from [facility], we were unable to obtain blood from the patient. We were able to get a peripheral IV in to administer IV fluids. Her vital signs are stable. She is afebrile. Her heart rate is in the 50s. Her blood pressure is running systolically in the 140s. The urinalysis obtained shows no evidence of infection but as stated, labs are pending as we have been unable to obtain access. PAST MEDICAL HISTORY: 1. Atrial fibrillation, anticoagulated with Coumadin. 2. Hypertension. 3. Insulin-dependent diabetes. 4. Hypothyroidism. 5. Hyperlipidemia. 6. Remote history of breast cancer, status post mastectomy. 7. Mild to moderate dementia. 8. Diastolic congestive heart failure. PAST SURGICAL HISTORY: 1. Right mastectomy. 2. Appendectomy. 3. Tubal ligation. MEDICATIONS AT HOME: 1. Escitalopram 20 mg p.o. daily. 2. Furosemide 40 mg p.o. daily. 3. Tresiba 40 units subcutaneously q.a.m. 4. Lisinopril 2.5 mg p.o. daily. 5. Loratadine with pseudoephedrine 1 tab p.o. q.a.m. 6. Potassium chloride 10 mEq daily. 7. Rabeprazole 20 mg p.o. daily. 8. Rosuvastatin 5 mg p.o. daily. 9. Warfarin 1 mg alternating with 2 mg as directed. 10. Cyanocobalamin 500 mcg daily. 11. Donepezil 10 mg daily. 12. Levothyroxine 100 mcg p.o. daily. 13. Namenda 10 mg p.o. b.i.d. 14. Metoprolol succinate 25 mg p.o. daily. ALLERGIES: IODINATED CONTRAST MEDIA, CODEINE, PENICILLIN, PRAVASTATIN, AZITHROMYCIN, C.I. PIGMENT BLUE 63. FAMILY HISTORY: Reviewed and noncontributory. SOCIAL HISTORY: The patient lives with her , who is the healthcare proxy. No reported alcohol, tobacco or drug use. REVIEW OF SYSTEMS: A 14-point review of systems completed on Ms. Paredes and all those not mentioned above were negative. PHYSICAL EXAMINATION GENERAL: Ms. Paredes is sitting in the bed. She is in no acute distress. VITAL SIGNS: Temperature 98.5, heart rate 56, respiratory rate 16, O2 saturation 97% on room air, blood pressure 141/117. NEUROLOGIC: She is alert. She is oriented x3. She moves all extremities. There is no facial asymmetry or focal weakness. Extraocular movements were intact. DIAGNOSTIC STUDIES/LABORATORY DATA: Urine is negative. Chest x-ray is pending. Labs are pending. EKG shows sinus rhythm with no evidence of ischemia. ASSESSMENT: Ms. Paredes is a 85-year-old female with past medical history of diabetes, diastolic congestive heart failure, dementia, hypertension who presents to the hospital today with an episode of shaking. Unfortunately, we have been unable to obtain labs despite several hours and multiple providers including a surgeon attempting to provide a line to obtain labs. Plans will be to place patient on observation overnight with a plan to hydrate and try to obtain a PICC line for access tomorrow. The remaining of our plan is as follows : 1. Shaking. The last time the patient was admitted, she had similar shaking and it was related to pneumonia. Chest x-ray is pending, though she just did have chest x- ray on 09/18/16, which just showed a small right pleural effusion only. Her urinalysis is negative. The patient is stable tonight. We will await further details from her labs to determine if there is any source of infection that is yet to be identified. If that is not the case, we will likely have Neurology see the patient again. She was seen in consultation during the last admission but the symptoms had resolved before the neurologist saw her. 2. Type 2 diabetes. Plan to continue the patient's home Tresiba which she has brought in today and she will have blood glucose with q.a.c. with lispro sliding scale. 3. Hypothyroidism. Continue levothyroxine. 4. Hypertension. Continue metoprolol but plan to hold furosemide and lisinopril until we can obtain her labs tomorrow. 5. History of atrial fibrillation. Plan to hold her warfarin tonight until her INR can reevaluated as the last INR I have on file is from 08/01/16. 6. DVT prophylaxis with heparin subcu. 7. Disposition to medical floor. TIME SPENT: Approximately 75 minutes were spent on admission of this patient, more than half time spent with the patient at the bedside reviewing the events leading up to this hospitalization, performing the physical examination and reviewing the plan of care. ABBEY MEJIA NP CC: Dr. Price* [id number]/[facility] #: [id number] [facility]
[2016-09-21] MEDS ORDERED: Levothyroxine TAB* 100 MCG TAB PO SCH (06:00)
[2016-09-21] MEDS ORDERED: Heparin VIAL(*) 5000 UNITS/ML VIAL (FIVE THOUSAND) SUBCUT SCH (06:00)
[2016-09-21 06:47] LABS: Hematocrit 39 % (35-47); Hemoglobin 13.1 g/dl (12.0-16.0); Mean Corpuscular HGB Conc 33 g/dl (31-36); Mean Corpuscular Hemoglobin 30 pg (27-31); Mean Corpuscular Volume 89 fL (80-97); Mean Platelet Volume 10 um3 (7.4-10.4); Red Blood Count 4.41 10^6/ul (4.0-5.4); Red Cell Distribution Width 15 % (10.5-15); White Blood Count 10.3 10^3/ul (3.5-10.8)
[2016-09-21 07:04] LABS: Albumin 3.1 g/dL (3.2-5.2); BUN/Creatinine Ratio 17.7 (8-20); C Reactive Protein 4.26 mg/L (< 5.00); Calcium 8.5 mg/dL (8.6-10.3); EGFR African American 89.4 (>60); EGFR Non-African American 69.5 (>60); Globulin 2.9 g/dL (2-4); Magnesium 1.8 mg/dL (1.9-2.7); Potassium 3.9 mmol/L (3.5-5.0); Total Bilirubin 0.5 mg/dL (0.2-1.0)
[2016-09-21 08:15] LABS: TSH (Thyroid Stimulating Horm) 1.04 mcIU/mL (0.34-5.60)
[2016-09-21] MEDS: Insulin LISPRO* 1 UNITS UNIT SUBCUT SCH ×2 (08:53→12:19)
[2016-09-21] MEDS ORDERED: Metoprolol Succinate XL TAB* 25 MG PO SCH (09:00)
[2016-09-21] MEDS ORDERED: Cyanocobalamin TAB* 500 MCG PO SCH (09:00)
[2016-09-21] MEDS ORDERED: INSULIN DEGLUDEC 40 UNIT SUBCUT SCH (09:00)
--- NOTE | 2016-09-21 10:04 | RAD ---
HISTORY: Follow-up left basilar atelectasis versus consolidation COMPARISONS: None VIEWS: 2: Frontal dual-energy and lateral views of the chest. FINDINGS: CARDIOMEDIASTINAL SILHOUETTE: The cardiomediastinal silhouette is normal. JONY: The jnoy are normal. PLEURA: The costophrenic angles are sharp. No pleural abnormalities are noted. LUNG PARENCHYMA: There is improved aeration of the left lower lung. ABDOMEN: There is a large jony hernia. BONES AND SOFT TISSUES: No bone or soft tissue abnormalities are noted. OTHER: None. IMPRESSION: HIATAL HERNIA. IMPROVED AERATION OF THE LEFT LOWER LUNG.
[2016-09-21 10:10] LABS: Troponin I 0.01 ng/mL (<0.04)
--- NOTE | 2016-09-21 10:13 | PN ---
Subjective Date of Service: 09/21/16 Interval History: Ms. Paredes states that she is feeling much better today. She denies shaking or tremor on transfer from the bed to chair this morning. She has a mild chronic non-productive cough. She denies SOB or chest pain. She is tolerating oral intake well without nausea or abdominal pain. Objective Active Medications: Acetaminophen (Tylenol Tab*) 650 mg PO Q6H PRN Cyanocobalamin (Vitamin B12 Tab*) 500 mcg PO DAILY [facility] Dextrose (D50w Syringe 50 Ml*) 12.5 gm IV PUSH .FOR FS < 60 - SS PRN Donepezil HCl (Aricept Tab*) 10 mg PO DAILY [facility] Escitalopram Oxalate (Lexapro (Nf)) 20 mg PO BEDTIME [facility] Heparin Sodium (Porcine) (Heparin Vial(*)) 5,000 units SUBCUT Q8HR [facility] Lactated Ringer's (Lactated Ringers 1000 Ml Bag*) 1,000 mls @ 100 mls/hr IV PER RATE [facility] Insulin Human Lispro (Humalog*) 0 units SUBCUT AC [facility] Levothyroxine Sodium (Synthroid Tab*) 100 mcg PO DAILY@0600 [facility] Memantine (Namenda Tab*) 10 mg PO BID [facility] Metoprolol Succinate (Toprol Xl Tab*) 25 mg PO DAILY [facility] Pto - Insulin Degludec [Tresiba Flextouch] 40 Unit 40 unit SUBCUT QAM [facility] Ondansetron HCl (Zofran Inj*) 4 mg IV Q6H PRN Rosuvastatin Calcium (Crestor (Nf)) 5 mg PO BEDTIME [facility] Vital Signs 09/20/16 09/20/16 09/20/16 22:00 22:02 22:50 Temperature 98.8 F Pulse Rate 59 64 60 Respiratory 18 Rate Blood Pressure 139/68 144/44 (mmHg) O2 Sat by Pulse 96 92 95 Oximetry 09/21/16 09/21/16 03:34 07:50 Temperature 98.8 F Pulse Rate 59 66 Respiratory 16 16 Rate Blood Pressure 141/53 132/59 (mmHg) O2 Sat by Pulse 96 95 Oximetry Oxygen Devices in Use Now: None Appearance: Elderly female sitting up in chair eating breakfast in NAD Respiratory: Symmetrical Chest Expansion and Respiratory Effort, Clear to Auscultation Cardiovascular: NL Sounds; No Murmurs; No JVD, No Edema Abdominal: NL Sounds; No Tenderness; No Distention Extremities: No Edema Skin: No Rash or Ulcers Neurological: Alert and Oriented x 3, NL Muscle Strength and Tone Nutrition: Taking PO's Result Diagrams: 09/21/16 06:40 09/21/16 06:40 Additional Lab and Data: Lab Results 09/20/16 Range/Units 14:35 Urine Color Yellow Urine Appearance Clear Urine pH 7.0 (5-9) Ur Specific [place] 1.006 L (1.010-1.030) Urine Protein Negative (Negative) Urine Ketones Negative (Negative) Urine Blood Negative (Negative) Urine Nitrate Negative (Negative) Urine Bilirubin Negative (Negative) Urine Urobilinogen Negative (Negative) Ur Leukocyte Esterase Negative (Negative) Urine Glucose Negative (Negative) Assess/Plan/Problems-Billing Assessment: Ms. Paredes is an 85 yo female with a PMH of diabetes and recent pneumonia associated with episode of severe tremor thought to be due to illness who was admitted on 09/20/16 after an episode of severe shaking and weakness. - Patient Problems (1) Shaking chills Comment: Resolved. No evidence of infection. UA negative, Cxray negative, no leukocysotis or fever. Unclear etiology but no longer symptomatic. (2) Atrial fibrillation Comment: Rate controlled. INR 1.91, continue Coumadin. (3) CHF (congestive heart failure) Comment: Chronic diastolic failure without evidence of acute exacerbation (4) DM type 2 (diabetes mellitus, type 2) Comment: Cont basal insulin and prn SS coverage (5) Dementia Comment: cont Namenda, Aricept (6) Hypothyroidism Comment: cont Synthroid (7) DVT prophylaxis Comment: SCD's Status and Disposition: OBV. Discharge to home.
[2016-09-21 11:46] VITALS: BP 132/51
[2016-09-21] MEDS ORDERED: Warfarin TAB(*) 1 MG PO SCH (17:00)
--- NOTE | 2016-09-22 05:52 | DS ---
HOSPITAL MEDICINE DISCHARGE SUMMARY: DATE OF ADMISSION: 09/20/16 DATE OF DISCHARGE: 09/21/16 PRIMARY CARE PHYSICIAN: Dr. Price ATTENDING PHYSICIAN: Dr. Nils Estes* (dictation provided by Abbey Mejia NP) . PRIMARY DIAGNOSIS: Episode of shaking. HISTORY OF PRESENT ILLNESS: Ms. Paredes is an 85-year-old female with a past medical history of atrial fibrillation, on Coumadin, hypertension, insulin- dependent diabetes, dementia, diastolic congestive heart failure, and recent admission in July 2016 with an episode of shaking, thought to be secondary to pneumonia, who presented to the hospital on 09/20/16 with an episode of shaking. Ms. Paredes states that she had recovered well from her pneumonia in July. The night prior to admission, the patient had gotten up to try to go to the bathroom and she had again an episode of severe shaking. She was able to make it to the bathroom with a walker, but the shaking continued and she, therefore, presented to the emergency room. In the emergency room, she was found to have a urinalysis, which showed no evidence of infection, and vital signs that were stable, but despite multiple efforts to obtain blood, we were not able to do so. Ms. Paredes was placed on observation in the hospital. Further attempts were made at drawing blood this morning and were successful. She was found to have no acute laboratory abnormalities with no leukocytosis and no electrolyte abnormalities as well. Her chest x-ray showed no acute intrathoracic process, but she does have a hiatal hernia. Ms. Paredes is feeling well today. She has had no further episodes of shaking that was evident prior to her arrival to the ED yesterday. It is not clear what was driving this issue. On previous admission it had been thought to be related to pneumonia, but there is no evidence that the patient has infection or other abnormality. The patient was seen in consultation by Neurology during the last admission and she did receive a CT scan of the brain. CT scan was normal and Neurology consult was unrevealing and they felt that her symptoms were possibly related to her weakness and pneumonia. Ms. Paredes is feeling well today. I do not have a clear explanation for her shaking episode. I question whether perhaps she was mildly hypoglycemic or perhaps had a brief viral illness, but I feel that no further workup is going to be revealing at this time as her symptoms have resolved. Ms. Paredes was encouraged to return to the emergency room should she feel unwell with significant shaking chills or any other concerning symptom. DISPOSITION: To home. DIET: Consistent carbohydrate. ACTIVITY: As tolerated. FOLLOWUP PLANS: Please follow up with Dr. Price and an appointment will be made prior to her discharge. ABBEY MEJIA NP CC: Dr. Price* [id number]/[facility] #: [id number] MTDD
[2016-09-22] MEDS ORDERED: Warfarin TAB(*) 2 MG PO SCH (17:00)
== END 2016-09-21 13:45 | disposition home or self-care (01) ==
LOC: EEVIPCON 14:17 → ED 14:17 → MED 21:11
PROVIDERS: ADMIT Hospitalist; ATTEND Internal Medicine
DX: R25.9 Unspecified abnormal involuntary movements (principal); E11.9 Type 2 diabetes mellitus without complications; I11.0 Hypertensive heart disease with heart failure; I50.30 Unspecified diastolic (congestive) heart failure; E03.9 Hypothyroidism, unspecified; I48.91 Unspecified atrial fibrillation; F03.90 Unspecified dementia, unspecified severity, without behavioral disturbance, psychotic disturbance, mood disturbance, and anxiety; R94.31 Abnormal electrocardiogram [ECG] [EKG]; I49.1 Atrial premature depolarization; Z79.01 Long term (current) use of anticoagulants; Z79.4 Long term (current) use of insulin; Z79.899 Other long term (current) drug therapy; Z88.0 Allergy status to penicillin; Z88.5 Allergy status to narcotic agent; Z88.8 Allergy status to other drugs, medicaments and biological substances; Z85.3 Personal history of malignant neoplasm of breast
CPT/HCPCS: 36415; 71010; 71020; 80053; 81003; 83605; 83735; 84443; 84484; 85025; 85610; 86140; 93005; 96372; 99284; A9270-GY; G0378; G8978-GP-CK; G8979-GP-CI; G8980-GP-CK; J1644

== ENCOUNTER 2017-10-16 17:15 | Inpatient (IN) | payer MEDICARE ==
--- NOTE | 2017-10-16 18:55 | RAD ---
Indication: Cough. Single frontal view of the chest performed at 1810 hours was reviewed. Comparison is made with previous exam dated March 18, 2017. Hyperinflated lung meredith are noted. Cardiomegaly is noted. Interstitial edema consistent with vascular congestion is noted. IMPRESSION: CARDIOMEGALY WITH INTERSTITIAL EDEMA CONSISTENT WITH CHF SUPERIMPOSED UPON COPD.
[2017-10-16] MEDS: NS 0.9% 1000 ML* 1,000 ML IV SCH ×3 (19:45→23:27)
[2017-10-16 19:52] LABS: ABS Basophils 0 10^3/ul (0-0.2); ABS Eosinophils 0 10^3/ul (0-0.6); ABS Monocytes 1.3 10^3/ul (0-0.8); ABS Neutrophils 9.1 10^3/ul (1.5-7.7); ABS Nucleated RBC 0 10^3/ul; Eosinophil % 0 % (0-6); Hematocrit 35 % (35-47); Hemoglobin 11.4 g/dl (12.0-16.0); Lymphocyte % 9.1 % (25-47); Mean Corpuscular HGB Conc 33 g/dl (31-36); Mean Corpuscular Hemoglobin 29 pg (27-31); Mean Corpuscular Volume 88 fL (80-97); Mean Platelet Volume 9.8 um3 (7.4-10.4); Nucleated Red Blood Cells % 0; Platelet Count 220 10^3/ul (150-450); Red Blood Count 3.94 10^6/ul (4.0-5.4); Red Cell Distribution Width 15 % (10.5-15); White Blood Count 11.4 10^3/ul (3.5-10.8)
[2017-10-16 20:09] LABS: EGFR Non-African American 63.7 (>60)
[2017-10-16 20:26] LABS: INR 11.43 (0.77-1.02)
[2017-10-16] MEDS ORDERED: Acetaminophen TAB* 325 MG PO PRN (20:32)
[2017-10-16] MEDS ORDERED: Melatonin 3 MG TAB PO PRN (20:34)
[2017-10-16] MEDS ORDERED: traMADol TAB* 50 MG PO PRN (20:35)
[2017-10-16] MEDS ORDERED: Ondansetron ODT TAB* 4 MG PO PRN (20:47)
--- NOTE | 2017-10-16 20:48 | HP ---
H&P (Free Text) History and Physical: PCP: Raad Price MD Date/Time: 10/16/2017 1950 CC: malaise HPI: Mrs Paredes is an 86YO female HX AFIB, diastolic HF, DM2, HTN, HLD, hypothyroidism, remote HX breast CA, & dementia who presents with family with report of cough and congestion for the past 2 weeks. The family has been trying to convince her to consent to coming in sooner for evaluation, but she had refused for days but agreed tonight. She is unable to give a history herself 2nd dementia and mainly only states that she is "afraid". Reportedly she has had cough and congestion for 2 weeks with intermittent fever up to 101F. Cough is productive of yellow phlegm. There has been sweats, SOB, progressive generalized weakness, decreasing appetite, increased fatigue, but no chest pain , palpitations, abdominal pain, change in bowel/bladder, rash, headache, or other issues. Her was diagnosed early this month with the flu and she was given prophylactic oseltamivir, but only took 3 days worth - stopping due to vomiting once after the 3rd dose. Influenza tonight is negative. ED evaluation is notable for sepsis (tachycardia, tachypnea, fever) 2nd B multifocal pneumonia. CRP is >300. Influenza tonight is negative. 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 dementia Ambulatory Orders Cholecalciferol TAB* [Vitamin D TAB*] 50,000 unit PO WEEKLY 10/16/17 Donepezil TAB* [Aricept 5 MG TAB*] 10 mg PO DAILY 10/16/17 Escitalopram (NF) [Lexapro 20 mg (NF)] 20 mg PO DAILY 10/16/17 Fluticasone NASAL SPRAY 50MCG* [Flonase NASAL SPRAY 50MCG*] 2 spray BOTH NARES DAILY 10/16/17 Fluticasone/Vilanterol MDI(NF) [Breo Ellipta MDI (NF)] 1 puff INH DAILY Furosemide TAB* [Lasix TAB*] 20 mg PO DAILY 10/16/17 Insulin Degludec [Tresiba Flextouch] 35 unit SC DAILY 10/16/17 Levothyroxine TAB* [Synthroid TAB*] 100 mcg PO DAILY 10/16/17 LoraTADine TAB(NF) [Claritin 10 MG TAB(NF)] 5 mg PO DAILY 10/16/17 Memantine TAB* [Namenda TAB*] 10 mg PO BID 10/16/17 Metoprolol Succinate XL TAB* [Toprol XL TAB*] 25 mg PO DAILY 10/16/17 Potassium Chlor TAB* [Klor Con ER TAB*] 10 meq PO DAILY 10/16/17 Rabeprazole (NF) [Aciphex (NF)] 20 mg PO DAILY 10/16/17 Rosuvastatin (NF) [Crestor (NF)] 5 mg PO DAILY 10/16/17 Vitamin B Complex CAP* [B Complex CAP*] 1 cap PO DAILY 10/16/17 Warfarin TAB(*) [Coumadin TAB(*)] 1 mg PO .THREETIMESAWEEK 10/16/17 Warfarin TAB(*) [Coumadin TAB(*)] 2 mg PO .FOURDAYSAWEEK 10/16/17 glipiZIDE TAB* [Glucotrol TAB*] 5 mg PO BID 10/16/17 Allergies blue dye Allergy (Intermediate, Verified 10/16/17 18:51) Nausea And Vomiting Iodinated Contrast- Oral and IV Dye Allergy (Intermediate, Verified 10/16/17 18: 51) Unknown Reaction Details pravastatin Allergy (Intermediate, Verified 10/16/17 18:51) See Comment increased LFT's codeine Allergy (Unknown, Verified 10/16/17 18:51) Unknown Reaction Details Penicillins Allergy (Unknown, Verified 10/16/17 18:51) Unknown Reaction Details azithromycin Adverse Reaction (Mild, Verified 10/16/17 18:51) Nausea PSurgHx R mastectomy appendectomy B tubal ligation SocHx: no tobacco, alcohol, or recreational drugs; lives with her ; full code status FamHx: reviewed & non-contributory ROS: as above, otherwise reviewed and all were negative vitals: Vital Signs Temp 37.1 C 10/16/17 17:17 Pulse 97 10/16/17 19:22 Resp 30 10/16/17 19:22 BP 155/83 10/16/17 19:22 Pulse Ox 91 10/16/17 19:22 Intake & Output 05/11/18 05/12/18 05/12/18 23:59 11:59 23:59 Weight 70.307 kg Constitutional: NAD, normally developed, overweight elderly white female HEENM: atraumatic; sclera/conjunctiva: anicteric/clear; hearing: clinically mildly decreased; oropharynx: clear, mucosa tacky Neck: soft tissue: no nuchal rigidity; thyroid: normal Pulmonary: diminished with diffuse scant crackles bilaterally, fair aeration, no accessory muscle use CV: TR/RR, normal S1S2, no carotid bruit, no jugular venous distention, 2+ B DP/ PT, no LE edema Abdominal: soft, non-distended, non-tender, no rebound/guarding/rigidity, normoactive bowel sounds, no hepatosplenomegaly or masses, no costovertebral angle tenderness Musculoskeletal: general: grossly intact, non-tender, RUE lymphedema Integumental: diaphoretic normal texture Psychiatric orientation: AA&O to person only affect: anxious mood: cooperative/pleasant eye contact: fair content: unreliable memory: markedly impaired to immediate & recent responses: timely, paucity of information insight: poor Testing: Lab Results 10/16/17 10/16/17 10/16/17 Range/Units 19:24 19:42 19:42 WBC 11.4 H (3.5-10.8) 10^3/ul RBC 3.94 L (4.0-5.4) 10^6/ul Hgb 11.4 L (12.0-16.0) g/dl Hct 35 (35-47) % MCV 88 (80-97) fL MCH 29 (27-31) pg MCHC 33 (31-36) g/dl RDW 15 (10.5-15) % Plt Count 220 (150-450) 10^3/ul MPV 9.8 (7.4-10.4) um3 Neut % (Auto) 79.6 (38-83) % Lymph % (Auto) 9.1 L (25-47) % [place] % (Auto) 11.2 H (0-7) % Eos % (Auto) 0 (0-6) % Baso % (Auto) 0.1 (0-2) % Absolute Neuts (auto) 9.1 H (1.5-7.7) 10^3/ul Absolute Lymphs (auto) 1.0 (1.0-4.8) 10^3/ul Absolute Monos (auto) 1.3 H (0-0.8) 10^3/ul Absolute Eos (auto) 0 (0-0.6) 10^3/ul Absolute Basos (auto) 0 (0-0.2) 10^3/ul Absolute Nucleated RBC 0 10^3/ul Nucleated RBC % 0 INR (Anticoag Therapy) 11.43 H* (0.77-1.02) APTT 63.0 H (26.0-36.3) seconds Sodium (139-145) mmol/L Potassium Chloride (101-111) mmol/L Carbon Dioxide (22-32) mmol/L Anion Gap BUN (6-24) mg/dL Creatinine (0.51-0.95) mg/dL Est GFR ( Amer) (>60) Est GFR (Non-Af Amer) (>60) BUN/Creatinine Ratio (8-20) Glucose (70-100) mg/dL Lactic Acid (0.5-2.0) mmol/L Calcium (8.6-10.3) mg/dL Magnesium (1.9-2.7) mg/dL Total Bilirubin (0.2-1.0) mg/dL AST ALT (7-52) U/L Alkaline Phosphatase (34-104) U/L Total Creatine Kinase (10-223) U/L CK-MB (CK-2) (0.6-6.3) ng/mL Troponin I (<0.04) ng/mL C-Reactive Protein (< 5.00) mg/L B-Natriuretic Peptide ( - 100) pg/mL Total Protein (6.4-8.9) g/dL Albumin (3.2-5.2) g/dL Globulin (2-4) g/dL Albumin/Globulin Ratio (1-3) Lipase (11.0-82.0) U/L TSH (0.34-5.60) mcIU/mL Influenza A (Rapid) Negative (Negative) Influenza B (Rapid) Negative (Negative) 10/16/17 10/16/17 10/16/17 Range/Units 19:42 19:42 19:42 WBC (3.5-10.8) 10^3/ul RBC (4.0-5.4) 10^6/ul Hgb (12.0-16.0) g/dl Hct (35-47) % MCV (80-97) fL MCH (27-31) pg MCHC (31-36) g/dl RDW (10.5-15) % Plt Count (150-450) 10^3/ul MPV (7.4-10.4) um3 Neut % (Auto) (38-83) % Lymph % (Auto) (25-47) % [place] % (Auto) (0-7) % Eos % (Auto) (0-6) % Baso % (Auto) (0-2) % Absolute Neuts (auto) (1.5-7.7) 10^3/ul Absolute Lymphs (auto) (1.0-4.8) 10^3/ul Absolute Monos (auto) (0-0.8) 10^3/ul Absolute Eos (auto) (0-0.6) 10^3/ul Absolute Basos (auto) (0-0.2) 10^3/ul Absolute Nucleated RBC 10^3/ul Nucleated RBC % INR (Anticoag Therapy) (0.77-1.02) APTT (26.0-36.3) seconds Sodium 134 L (139-145) mmol/L Potassium Pending Chloride 100 L (101-111) mmol/L Carbon Dioxide 26 (22-32) mmol/L Anion Gap Pending BUN 22 (6-24) mg/dL Creatinine 0.85 (0.51-0.95) mg/dL Est GFR ( Amer) 81.9 (>60) Est GFR (Non-Af Amer) 63.7 (>60) BUN/Creatinine Ratio 25.9 H (8-20) Glucose 330 H (70-100) mg/dL Lactic Acid 1.4 (0.5-2.0) mmol/L Calcium 9.3 (8.6-10.3) mg/dL Magnesium 1.7 L (1.9-2.7) mg/dL Total Bilirubin 0.60 (0.2-1.0) mg/dL AST Pending ALT 8 (7-52) U/L Alkaline Phosphatase 94 (34-104) U/L Total Creatine Kinase 28 (10-223) U/L CK-MB (CK-2) 1.2 (0.6-6.3) ng/mL Troponin I 0.01 (<0.04) ng/mL C-Reactive Protein 309.97 H (< 5.00) mg/L B-Natriuretic Peptide 191 H ( - 100) pg/mL Total Protein 6.8 (6.4-8.9) g/dL Albumin 2.9 L (3.2-5.2) g/dL Globulin 3.9 (2-4) g/dL Albumin/Globulin Ratio 0.7 L (1-3) Lipase 14 (11.0-82.0) U/L TSH 0.15 L (0.34-5.60) mcIU/mL Influenza A (Rapid) (Negative) Influenza B (Rapid) (Negative) ECG, personally reviewed: NSR rate 96, no ischemia CXR, personally reviewed: read as: IMPRESSION: CARDIOMEGALY WITH INTERSTITIAL EDEMA CONSISTENT WITH CHF SUPERIMPOSED UPON; however to my eye appears more consistent with multifocal pneumonia particularly in this clinical setting ECHO (01/20/2015): Conclusions: The left ventricular chamber size is decreased. Mild concentric left ventricular hypertrophy is observed. There is normal left ventricular systolic function. The estimated ejection fraction is 60-65%. The assessment of diastolic function is non-diagnostic. The right atrium is mildly dilated. There is mild mitral regurgitation. The mitral valve leaflets are mildly thickened. There is trace to mild tricuspid regurgitation. There is evidence of moderate pulmonary hypertension. There is a trace pulmonic regurgitation. There is no significant pericardial effusion. There was not any prior study for comparison. Impression: 86F HX AFIB on warfarin , diastolic HF , insulin requiring DM2, HTN , HLD, hypothyroidism, breast CA s/p R mastectomy (remote), dementia presenting with sepsis 2nd multifocal bilateral pneumonia DIAGNOSIS & PLAN Primary sepsis 2nd multifocal bilateral pneumonia : IV levofloxacin : IVFs : blood & sputum CXs : urine S pneumo Legionella antigens : rapid influenza negative, but will treat empirically w/ renally dosed oseltamivir : sepsis w/ CRP >150 in CAP indicates mortality benefit with steroids, prednisone 50mg daily x5 days : supplemental oxygen : supportive care warfarin toxicity, INR >11 w/o overt bleeding : hold warfarin : no plan to reverse unless s/s of bleeding : trend INR Secondary AFIB on warfarin : hold warfarin as above : continue metoprolol diastolic HF : hold furosemide in setting of sepsis insulin requiring DM2 : update A1c : basal/bolus/correctional insulin : hold glipizide for now : insulin carb ratio diet HTN : continue metoprolol : PRN hydralazine w/ parameters HLD : continue rosuvastatin hypothyroidism : continue levothyroxine HX breast CA s/p R mastectomy, remote : no acute issues dementia : continue donepezil & mematine GERD : continue rabeprazole depression/anxiety : continue escitalopram Admission Rational: inpatient for sepsis requiring IV ABX & IVFs in patient at high risk of morbidity/mortality; inappropriate for outpatient setting DVTp: supertherapeutic on warfarin, restart once indicated Code Status: full, needs revisiting HCP:
[2017-10-16] MEDS ORDERED: glipiZIDE TAB* 5 MG PO SCH (21:00)
[2017-10-16] MEDS: Levofloxacin 750 MG IVPREMIX(* 750 MG/150 ML BAG IVPB SCH (21:38)
[2017-10-16] MEDS: guaiFENesin ER TAB 600 MG PO SCH (22:42)
[2017-10-16] MEDS ORDERED: hydrALAZINE IV* 20 MG/ML VIAL IV PRN (22:42)
[2017-10-16] MEDS: Docusate CAP* 100 MG PO SCH (22:43)
[2017-10-16] MEDS: predniSONE TAB* 50 MG PO SCH (22:44)
[2017-10-16] MEDS: Memantine TAB* 10 MG PO SCH (22:44)
--- NOTE | 2017-10-16 23:34 | ED ---
Reji Looney Elizabeth, scribed for Jayna Duvall MD on 10/16/17 at 2022 . Complex/Multi-Sys Presentation - HPI Summary HPI Summary: This patient is an 86 year old F presenting to [facility] accompanied by her (Marito), daughter (Nelsy Bateman), and [id number] with a chief complaint of productive cough since 2 weeks ago. Symptoms aggravated by nothing. Symptoms alleviated by nothing. Patients family reports that the patient has been weak recently. Patients family reports the patient had a fever on 10/12, no fever on , fever again on 10/14, and no fever today. Patients family notes that she usually sleeps 20 hours a day and she has been able to eat soft foods, but has had less of an appetite recently. Patient last saw her primary care physician, Dr. Price, on 10/08/17. Patient lives at home with , son, and daughter-in -law. Patients was diagnosed with the flu on 10/08. The patient received a flu shot this year. She was given Tamiflu 10/08-10/10 but vomited it up on 10/10 so she stopped the tamiflu prophylaxis. The patients family reports that they reduced the Lasix dose given to the patient starting 10/08/17 due to the patient s low BP. Patient has a hx of diabetes and regularly takes medication for it. Glucoses at home have been running high today. The patients health care proxy is her daughter Shayy. When in room, patients BP was 166/76, HR was 105 bpm, and O2 saturation was 96% on 4L NC. Pt has home O2 for prn use at night. O2 sat upon admission to ED was 87% on RA and O2 was applied with improved O2 sats. - History Of Current Complaint Chief Complaint: EDFluSymptoms Time Seen by Provider: 10/16/17 18:12 Hx Obtained From: Patient, Family/Microbiology Instructor - , daughter Nelsy, daughter-in -law Onset/Duration: Gradual Onset, Lasting Weeks, Still Present, Worse Since - today Timing: Intermittent, Lasting:, Hours Severity Currently: Severe Severity Initially: Mild Aggravating Factor(s): nothing Alleviating Factor(s): nothing Associated Signs And Symptoms: Positive: Weakness, SOB, Cough, Decreased Oral Intake, Fever Related History: Other - had influenza this week, pt took 3 doses prophylactic Tamiflu but DC'd due to vomiting. - Allergies/Home Medications Allergies/Adverse Reactions: Allergies Allergy/AdvReac Type Severity Reaction Status Date / Time blue dye Allergy Intermediate Nausea And Verified 10/16/17 18:51 Vomiting Iodinated Contrast- Oral and Allergy Intermediate Unknown Verified 10/16/17 18: 51 IV Dye Reaction Details pravastatin Allergy Intermediate See Comment Verified 10/16/17 18:51 codeine Allergy Unknown Unknown Verified 10/16/17 18:51 Reaction Details Penicillins Allergy Unknown Unknown Verified 10/16/17 18:51 Reaction Details azithromycin AdvReac Mild Nausea Verified 10/16/17 18:51 Home Medications: Home Medications Cholecalciferol TAB* [Vitamin D TAB*] 50,000 unit PO WEEKLY 10/16/17 [History Confirmed 10/16/17] Donepezil TAB* [Aricept 5 MG TAB*] 10 mg PO DAILY 10/16/17 [History Confirmed ] Escitalopram (NF) [Lexapro 20 mg (NF)] 20 mg PO DAILY 10/16/17 [History Confirmed 10/16/17] Fluticasone NASAL SPRAY 50MCG* [Flonase NASAL SPRAY 50MCG*] 2 spray BOTH NARES DAILY 10/16/17 [History Confirmed 10/16/17] Fluticasone/Vilanterol MDI(NF) [Breo Ellipta MDI 100/25(NF)] 1 puff INH DAILY [History Confirmed 10/16/17] Furosemide TAB* [Lasix TAB*] 20 mg PO DAILY 10/16/17 [History Confirmed 10/16/17 ] LoraTADine TAB(NF) [Claritin 10 MG TAB(NF)] 5 mg PO DAILY 10/16/17 [History Confirmed 10/16/17] Memantine TAB* [Namenda TAB*] 10 mg PO BID 10/16/17 [History Confirmed 10/16/17] Metoprolol Succinate XL TAB* [Toprol XL TAB*] 25 mg PO DAILY 10/16/17 [History Confirmed 10/16/17] Potassium Chlor TAB* [Klor Con ER TAB 10 MEQ*] 10 meq PO DAILY 10/16/17 [ History Confirmed 10/16/17] Rabeprazole (NF) [Aciphex (NF)] 20 mg PO DAILY 10/16/17 [History Confirmed 10/16] Rosuvastatin (NF) [Crestor (NF)] 5 mg PO DAILY 10/16/17 [History Confirmed 10/16] Vitamin B Complex CAP* [B Complex CAP*] 1 cap PO DAILY 10/16/17 [History Confirmed 10/16/17] PMH/Surg Hx/FS Hx/Imm Hx Endocrine/Hematology History: Reports: Hx Anticoagulant Therapy, Hx Diabetes, Hx Thyroid Disease - hypothyroidism Cardiovascular History: Reports: Hx Hypercholesterolemia, Hx Hypertension Respiratory History: Reports: Hx Asthma - 2 INHAILERS, Hx Chronic Bronchitis GI History: Reports: Hx Gastroesophageal Reflux Disease, Hx Hiatal Hernia, Hx Irritable Bowel, Hx Ulcer Musculoskeletal History: Reports: Hx Arthritis, Other Musculoskeletal History - s4 FX Denies: Hx Osteoporosis Sensory History: Reports: Hx Contacts or Glasses Denies: Hx Hearing Aid Opthamlomology History: Reports: Hx Contacts or Glasses Neurological History: Reports: Hx Dementia - Cancer History Cancer Type, Location and Year: rt breast radical mastectomy with chemo Hx Chemotherapy: Yes - BREAST Hx Radiation Therapy: No - Surgical History Surgery Procedure, Year, and Place: RIGHT RADICAL MASTECTOMY. LEFT KNEE BULGE REMOVED. AFIB ABLATION-AND ALSO HAD BLEEDING AROUND HEART- SURGERY TO STOP BLEEDING [place]. APPENDECTOMY. OVARIAN CYST REMOVED. TUBAL LIGATION. TONSILLECTOMY- AGE 32 Hx Anesthesia Reactions: Yes - CODEINE CAUSED N/V Infectious Disease History: No Infectious Disease History: Denies: Traveled Outside the [place] in Last 30 Days - Family History Known Family History: Positive: Diabetes, Other - breast cancer - Social History Lives: With Family Alcohol Use: None Substance Use Type: Reports: None Hx Tobacco Use: No Smoking Status (MU): Never Smoked Tobacco Review of Systems Positive: Fever Cardiovascular: Negative Positive: Shortness Of Breath, Cough Positive: Other - decreased oral intake Positive: no symptoms reported Skin: Negative Positive: Weakness Psychological: Normal All Other Systems Reviewed And Are Negative: Yes Physical Exam - Summary Physical Exam Summary: Appearance: Ill-appearing, moderate pain distress, Well-nourished, short of breath at rest, deep congested cough Skin: Warm, color reflects adequate perfusion Head: Normal Head/Face inspection, Atraumatic Eyes: Conjunctiva clear ENT: Normal inspection Neck: Supple, no nodes, no JVD. Respiratory: Diminished breath sounds bilaterally, rhonchi in right lung, short of breath at rest Cardio: RRR, No murmur, pulses normal, brisk capillary refill Abdomen: soft, nontender Bowel sounds: present Musculoskeletal: Strength Intact/ ROM intact. No calf tenderness. Accessory muscles. Lymphedema in right arm, 2+ pitting edema in bilateral lower extremities Psychological: Normal Neuro: Alert, muscle tone normal, no focal deficit Triage Information Reviewed: Yes Vital Signs On Initial Exam: Initial Vitals Temp Pulse Resp BP Pulse Ox 98.8 F 98 20 171/86 97 10/16/17 17:17 10/16/17 17:17 10/16/17 17:17 10/16/17 17:17 10/16/17 17:17 Vital Signs Reviewed: Yes Diagnostics - Vital Signs Vital Signs Temp Pulse Resp BP Pulse Ox 10/16/17 19:00 101 29 97 10/16/17 18:52 98 32 166/76 97 10/16/17 18:39 96 10/16/17 18:28 99 23 158/82 92 10/16/17 18:00 100 29 99 10/16/17 17:57 105 29 170/85 99 10/16/17 17:27 99 174/89 97 10/16/17 17:24 99 97 10/16/17 17:17 98.8 F 98 20 171/86 97 - Laboratory Result Diagrams: 10/19/17 07:09 10/19/17 06:52 Lab Statement: Any lab studies that have been ordered have been reviewed, and results considered in the medical decision making process. - Radiology CXR Xray Interpretation: Positive (See Comments) - IMPRESSION: CARDIOMEGALY WITH INTERSTITIAL EDEMA CONSISTENT WITH CHF SUPERIMPOSED UPON COPD. Dr. Duvall has reviewed this report. Radiology Interpretation Completed By: Radiologist - EKG 18:13 Cardiac Rate: NL - at 96 BPM EKG Rhythm: 1st Degree HB - 1st degree AV block (247) ST Segment: Non-Specific Ectopy: None EKG Interpretation: nml IVCT, 1st degree AV block (247), nml QTC, nml axis EKG Comparison: No Significant Change - when compared to EKG from 09/20/16 Re-Evaluation - Re-Evaluation First Eval Re-Evaluation Time: 21:15 Change: Unchanged Comment: advised of results and admission to hospitalist. Pt and family agree. Nelsy Mejia, daughter has left at this time. Complex Multi-Symp Course/Dx Course Of Treatment: An 18:13 EKG reveals sinus rhythm at 96 bpm, nml IVCT, 1st degree AV block (247), nml QTC, nml axis. No change when compared to EKG from . CXR reveals, per radiologist, cardiomegaly with interstitial edema consistent with CHF superimposed upon COPD. Dr. Duvall has reviewed this radiology report. Sepsis protocol not initiated with fluids due to patients history of CHF. CXR confirms interstitial edema. Pt with elevated INR 11.43 while on warfarin. Discussed with Dr. Alvarez, pt is not bleeding from any source, noted at this time, so will hold on Vit K. Patient is diagnosed with bilateral pneumonia, and supratherapeutic INR. We discussed patient care with Dr. Alvarez, hospitalist, and he agreed to admit the patient to [facility]. Patients daughter, Nelsy Bateman, had to return home but wishes to kept informed of her mothers treatment. She can be reached at [phone]. - Diagnoses Differential Diagnoses/HQI/PQRI: Metabolic Abnormality, Sepsis, Other - CHF Provider Diagnoses: Bilateral pneumonia, Supratherapeutic INR, CHF (congestive heart failure), Sepsis, Poorly controlled diabetes mellitus, Hypomagnesemia - Physician Notifications Discussed Care Of Patient With: Tejinder Alvarez Time Discussed With Above Provider: 20:40 Instructed by Provider To: Admit As Inpatient Discharge - Sign-Out/Discharge Documenting (check all that apply): Discharge/Admit/Transfer - admit - Discharge Plan Condition: Stable Disposition: ADMITTED TO [facility] - Billing Disposition and Condition Condition: STABLE Disposition: [facility]OSP-[facility] The documentation as recorded by the Reji archuleta Elizabeth accurately reflects the service I personally performed and the decisions made by Jadiel hernandez Barbara J, MD.
[2017-10-17] MEDS: Benzonatate CAP* 100 MG PO PRN (00:08)
[2017-10-17] MEDS: NS 0.9% 1000 ML* 1,000 ML IV SCH ×3 (01:37→16:53)
[2017-10-17] MEDS: Oseltamivir CAP* 30 MG CAP PO SCH ×3 (01:38→20:54)
[2017-10-17] MEDS ORDERED: Morphine VIAL* 4 MG/ML VIAL (1 ml vial) IV PRN (01:56)
[2017-10-17] MEDS: LORazepam INJ* 2 MG/ML 1 ML VIAL IV PRN (02:44)
[2017-10-17 06:44] LABS: ABS Basophils 0 10^3/ul (0-0.2); ABS Eosinophils 0 10^3/ul (0-0.6); ABS Lymphocytes 0.7 10^3/ul (1.0-4.8); ABS Monocytes 0.4 10^3/ul (0-0.8); ABS Neutrophils 7.2 10^3/ul (1.5-7.7); ABS Nucleated RBC 0 10^3/ul; Eosinophil % 0 % (0-6); Hematocrit 34 % (35-47); Hemoglobin 11.2 g/dl (12.0-16.0); Mean Corpuscular HGB Conc 33 g/dl (31-36); Mean Corpuscular Hemoglobin 29 pg (27-31); Mean Corpuscular Volume 87 fL (80-97); Mean Platelet Volume 9.6 um3 (7.4-10.4); Nucleated Red Blood Cells % 0; Platelet Count 215 10^3/ul (150-450); Red Blood Count 3.85 10^6/ul (4.0-5.4); Red Cell Distribution Width 15 % (10.5-15); White Blood Count 8.3 10^3/ul (3.5-10.8)
[2017-10-17] MEDS: Omeprazole CAP* 20 MG PO SCH (06:56)
[2017-10-17] MEDS: Levothyroxine TAB* 100 MCG TAB PO SCH (06:56)
[2017-10-17 07:01] LABS: EGFR Non-African American 83.9 (>60)
[2017-10-17 07:31] LABS: INR 17.25 (0.77-1.02)
[2017-10-17] MEDS ORDERED: Phytonadione Oral Solution* 5 MG/25 ML UDC PO ONE (08:00)
[2017-10-17] MEDS ORDERED: RABEPRAZOLE 20 MG PO SCH (09:00)
[2017-10-17] MEDS ORDERED: Fluticasone/Vilanterol MDI(NF) 100/25 MDI INH SCH (09:00)
[2017-10-17] MEDS: Potassium Chlor TAB* 10 MEQ TAB.ER PO SCH (09:09)
[2017-10-17] MEDS: predniSONE TAB* 50 MG PO SCH (09:09)
[2017-10-17] MEDS: Metoprolol Succinate XL TAB* 25 MG PO SCH (09:09)
[2017-10-17] MEDS: Docusate CAP* 100 MG PO SCH ×2 (09:09→20:54)
[2017-10-17] MEDS: guaiFENesin ER TAB 600 MG PO SCH ×2 (09:09→20:54)
[2017-10-17] MEDS: Memantine TAB* 10 MG PO SCH ×2 (09:09→20:54)
[2017-10-17] MEDS: Donepezil TAB* 5 MG PO SCH (09:09)
[2017-10-17] MEDS: CMCS Escitalopram (NF) 10 MG TAB PO SCH (09:10)
[2017-10-17] MEDS: CMCS Rosuvastatin (NF) 5 MG TAB PO SCH (09:11)
--- NOTE | 2017-10-17 09:26 | PN ---
Subjective Date of Service: 10/17/17 Interval History: Mrs. Paredes is doing a little better today. Still has productive cough, but denies chest pain or SOB. No headaches, dizziness or blurred vision. Denies fever or chills. Appetite better, eating her breakfast and requesting ketchup and soy milk. She has no new complaints today. She was seen and examined earlier in the morning. I came back to discuss plans of care with her and family. She was seen and examined again in the afternoon with clinical improvement seen. Family History: Unchanged from Admission Social History: Unchanged from Admission Past Medical History: Unchanged from Admission Objective Active Medications: Acetaminophen (Tylenol Tab*) 650 mg PO Q6H PRN PRN Reason: FEVER/PAIN Benzonatate (Tessalon Cap*) 100 mg PO TID PRN PRN Reason: COUGH Last Admin: 10/17/17 00:08 Dose: 100 mg Docusate Sodium (Colace Cap*) 200 mg PO BID [facility] Last Admin: 10/17/17 09:09 Dose: 200 mg Donepezil HCl (Aricept Tab*) 10 mg PO DAILY [facility] Last Admin: 10/17/17 09:09 Dose: 10 mg Escitalopram Oxalate (Lexapro (Nf)) 20 mg PO DAILY [facility] Last Admin: 10/17/17 09:10 Dose: 20 mg Fluticasone/Vilanterol (Breo Ellipta Mdi 100/25(Nf)) 1 puff INH DAILY [facility] Last Admin: 10/17/17 07:47 Dose: Not Given Guaifenesin (Mucinex*) 1,200 mg PO BID [facility] Last Admin: 10/17/17 09:09 Dose: 1,200 mg Hydralazine HCl (Apresoline Iv*) 10 mg IV Q4H PRN PRN Reason: Systolic >170 Sodium Chloride (Ns 0.9% 1000 Ml*) 1,000 mls @ 150 mls/hr IV PER RATE [facility] Last Admin: 10/17/17 01:37 Dose: 150 mls/hr Levofloxacin/Dextrose (Levaquin 750 Mg Ivpremix(*)) 750 mg in 150 mls @ 100 mls /hr IVPB Q24H [facility] Last Admin: 10/16/17 21:38 Dose: 100 mls/hr Sodium Chloride (Ns 0.9% 1000 Ml*) 1,000 mls @ 0 mls/hr IV WIDE OPEN [facility] PRN Reason: Wide Open Stop: 10/17/17 20:46 Last Admin: 10/16/17 23:27 Dose: 999 mls/hr Insulin Glargine (Lantus(*)) 17 units 0.24 units/kg (17 units) SUBCUT 2100 [facility] Insulin Human Lispro (Humalog*) 0 units SUBCUT AC [facility] PRN Reason: Protocol Insulin Human Lispro (Humalog*) 0 units SUBCUT ACHS [facility] PRN Reason: Protocol Levothyroxine Sodium (Synthroid Tab*) 100 mcg PO 0600 [facility] Last Admin: 10/17/17 06:56 Dose: 100 mcg Lorazepam (Ativan Inj*) 0.5 mg IV Q8H PRN PRN Reason: ANXIETY Last Admin: 10/17/17 02:44 Dose: 0.5 mg Melatonin (Melatonin (Nf)) 3 mg PO BEDTIME PRN; Protocol PRN Reason: Sleep Memantine (Namenda Tab*) 10 mg PO BID [facility] Last Admin: 10/17/17 09:09 Dose: 10 mg Metoprolol Succinate (Toprol Xl Tab*) 25 mg PO DAILY [facility] Last Admin: 10/17/17 09:09 Dose: 25 mg Morphine Sulfate (Morphine Vial*) 1 mg IV Q2H PRN PRN Reason: tachypnea Omeprazole (Prilosec Cap*) 20 mg PO DAILY@0600 [facility] Last Admin: 10/17/17 06:56 Dose: 20 mg Ondansetron HCl (Zofran Odt Tab*) 4 mg PO Q6H PRN PRN Reason: NAUSEA/VOMITING Oseltamivir Phosphate (Tamiflu Cap*) 30 mg PO BID [facility] Stop: 10/21/17 09:01 Last Admin: 10/17/17 09:10 Dose: 30 mg Potassium Chloride (Klor Con Er Tab*) 10 meq PO DAILY [facility] Last Admin: 10/17/17 09:09 Dose: 10 meq Prednisone (Deltasone Tab*) 50 mg PO DAILY [facility] Stop: 10/20/17 09:01 Last Admin: 10/17/17 09:09 Dose: 50 mg Rosuvastatin Calcium (Crestor (Nf)) 5 mg PO DAILY [facility] PRN Reason: Protocol Last Admin: 10/17/17 09:11 Dose: 5 mg Tramadol HCl (Ultram*) 50 mg PO Q6H PRN PRN Reason: PAIN Vital Signs - 8 hr 10/17/17 10/17/17 10/17/17 02:16 02:44 03:09 Temperature 97.4 F Pulse Rate 80 Respiratory 28 32 Rate Blood Pressure 126/87 (mmHg) O2 Sat by Pulse 98 100 Oximetry 10/17/17 10/17/17 10/17/17 04:03 07:32 07:45 Temperature 97.3 F Pulse Rate 79 Respiratory 28 20 Rate Blood Pressure 136/64 (mmHg) O2 Sat by Pulse 98 100 Oximetry Oxygen Devices in Use Now: Nasal Cannula Appearance: Frail elderly female, sitting in her bed eating breakfast. Appears comfortable and in NAD. Eyes: No Scleral Icterus, PERRLA Ears/Nose/Mouth/Throat: Clear Oropharnyx, Mucous Membranes Moist, - - Voice is weak, reports persistent cough for days leading to her symptom. Neck: NL Appearance and Movements; NL JVP, Trachea Midline Respiratory: Symmetrical Chest Expansion and Respiratory Effort, - - Lungs with diffuse scattered rhonchi and rales noted. No wheezing. Cardiovascular: NL Sounds; No Murmurs; No JVD, RRR Abdominal: NL Sounds; No Tenderness; No Distention Lymphatic: No Cervical Adenopathy Extremities: No Edema Skin: No Rash or Ulcers Neurological: Alert and Oriented x 3, NL Sensation, NL Muscle Strength and Tone Lines/Tubes/Other Access: Clean, Dry and Intact Peripheral IV Nutrition: Taking PO's Result Diagrams: 10/17/17 06:30 10/17/17 06:30 Microbiology and Other Data: RUN DATE: 10/17/17 [facility] LIVE PAGE 1 RUN TIME: [address] [place], [place] [address] Specimen Inquiry Name: PAL PAREDES : [address]: Harman Barros MD Acct: [id number] Unit: [id number] AGE: 86 Location: [address] Re10/16/17 SEX: F Status: ADM IN SPEC: [id number] CARLA: 10/16/17-[address]: Tejinder Alvarez MD REQ: [id number] RECD: 10/17/17 STATUS: RES OTHR DR: Jayna Duvall MD _ Yane Price MD SOURCE: SPUTUM SPDESC: ORDERED: Sputum Cult/GS COMMENTS: Comment: ( or to use OGT) Procedure Result Reported Site Sputum Smear Final 10/17/17- 39 ML 3+ Columnar Epithelial Cells 1+ Neutrophils 1+ Nucleated Cells Mixed Morphotypes, resembling Normal Shanae Sputum Culture PENDING * ML - Main Lab Diagnostic Imaging: Patient Name: PAL PAREDES Medical Record#: [id number] Ordering Physician: Jack Haywood MD Acct.#: [id number] : 1930 Age: 86 Sex: F Location: EMERGENCY DEPARTMENT Exam Date: 10/16/171757 ADM Status: REG ER Order Information: CHEST AP PORTABLE Accession Number: [id number] CPT: 59198 Indication: Cough. Single frontal view of the chest performed at 1810 hours was reviewed. Comparison is made with previous exam dated March 18, 2017. Hyperinflated lung meredith are noted. Cardiomegaly is noted. Interstitial edema consistent with vascular congestion is noted. IMPRESSION: CARDIOMEGALY WITH INTERSTITIAL EDEMA CONSISTENT WITH CHF SUPERIMPOSED UPON COPD. <Electronically signed by Elo Terrell MD in OV> 10/16/17 185 Dictated By: Elo Terrell MD EKG Data: EKG INTERPRETATION ECG Report Patient Name PAL PAREDES Birthdate 1930 Sex F Order Number [id number] Date of ECG 10/16/2017 18:13:39 Interpretation Sinus rhythm.normal P axis, V-rate 60- [address] interval[address]CT >215, V-rate 91-120 Nonspecific T abnormalities, lateral leads.T <-0.10mV, I aVL V5 V6 - ABNORMAL ECG - Assess/Plan/Problems-Billing Assessment: An 86 y/o female with PMHx HTN, HLD, diastolic HF, insulin dependent DM and a- fib on Warfarin therapy, who presented to ED with sepsis secondary to multifocal pneumonia. - Patient Problems (1) Sepsis Current Visit: Yes Status: Acute Priority: High Comment: - Likely secondary to multifocal pneumonia - IVF and antibiotics - Recent exposure to influenza, did not finish her prophylactic treatment, will add renal modified dose Tamiflu - Spesis with CRP>150 with in CAP indicates mortality reduction benefit with steroid therapy. Continue Prednisone 50mg daily. - Supplemental oxygen - Supportive care - Blood and sputum cultures pending - Check urine Legionella and S. pneumo antigen (2) Pneumonia Current Visit: No Status: Acute Priority: High Comment: - Community acquired, plans as above - Clinically improving today (3) Diastolic heart failure Current Visit: Yes Status: Acute Comment: - Will hold diuretics in setting of sepsis (4) Atrial fibrillation Current Visit: Yes Status: Chronic Comment: - Will hold Coumadin giving INR up to 17 this morning. - No evidence of bleeding - Reversal started with 5 mg vit. K today (5) DM type 2 (diabetes mellitus, type 2) Current Visit: No Status: Acute Comment: - Cont basal insulin and prn SS coverage - Update HgA1c (6) Hypertension Current Visit: Yes Status: Acute Comment: - Continue Metoprolol - Hydralazine prn with paremeters (7) Dementia Current Visit: No Status: Acute Comment: - Cont Namenda, Aricept (8) Hypothyroidism Current Visit: No Status: Chronic Comment: - TSH 0.15 - Doubt any evidence of hyperthyroidism given abscence of symptoms - Continue Levothyroxin at home dose. - Recommend thyroid panel in 2-3 weeks as outpatient. (9) HX: breast cancer Current Visit: Yes Status: Acute Comment: - Remote - Chronic RUE swelling and lymphedema (10) DVT prophylaxis Current Visit: No Status: Acute Comment: - Warfarin on hold due to supratheraputeic levels (11) Full code status Current Visit: Yes Status: Acute (12) Supratherapeutic INR Current Visit: Yes Status: Acute Comment: - Dr. Poe ordered 5 mg vit. K this AM. - Check daily INR - No evidnce of bleeding Status and Disposition: Inpatient. Anticipate discharge when medically stable.
[2017-10-17] MEDS: Insulin LISPRO* 1 UNITS UNIT SUBCUT SCH ×7 (09:30→20:56)
[2017-10-17] MEDS ORDERED: Albuterol/Ipratropium NEB.SOL* Albuterol 2.5 MG/Ipratropium 0.5 MG 3 ML INH PRN (19:36)
[2017-10-17] MEDS: Mometasone/Formoter 200/5 MDI INH SCH (20:22)
[2017-10-17] MEDS ORDERED: Furosemide IV* 10 MG/ML 2 ML VIAL (20 MG) IV ONE (20:32)
[2017-10-17] MEDS: Levofloxacin 750 MG IVPREMIX(* 750 MG/150 ML BAG IVPB SCH (20:53)
[2017-10-17] MEDS ORDERED: Insulin GLARGINE(*) 1 UNITS UNIT SUBCUT SCH (21:00)
[2017-10-18] MEDS: Omeprazole CAP* 20 MG PO SCH (06:06)
[2017-10-18] MEDS: Levothyroxine TAB* 100 MCG TAB PO SCH (06:06)
[2017-10-18 06:26] LABS: ABS Basophils 0 10^3/ul (0-0.2); ABS Eosinophils 0 10^3/ul (0-0.6); ABS Lymphocytes 1.4 10^3/ul (1.0-4.8); ABS Monocytes 0.7 10^3/ul (0-0.8); ABS Neutrophils 9.7 10^3/ul (1.5-7.7); ABS Nucleated RBC 0 10^3/ul; Eosinophil % 0 % (0-6); Hematocrit 34 % (35-47); Lymphocyte % 11.8 % (25-47); Mean Corpuscular HGB Conc 32 g/dl (31-36); Mean Corpuscular Hemoglobin 28 pg (27-31); Mean Corpuscular Volume 88 fL (80-97); Mean Platelet Volume 9.6 um3 (7.4-10.4); Nucleated Red Blood Cells % 0.1; Platelet Count 256 10^3/ul (150-450); Red Blood Count 3.89 10^6/ul (4.0-5.4); Red Cell Distribution Width 14 % (10.5-15); White Blood Count 11.9 10^3/ul (3.5-10.8)
[2017-10-18 06:44] LABS: INR 2.56 (0.77-1.02)
[2017-10-18 06:47] LABS: EGFR Non-African American 82.4 (>60)
[2017-10-18] MEDS: Mometasone/Formoter 200/5 MDI INH SCH ×2 (07:42→20:53)
[2017-10-18] MEDS: Memantine TAB* 10 MG PO SCH ×2 (10:21→20:33)
[2017-10-18] MEDS: Docusate CAP* 100 MG PO SCH ×2 (10:21→20:33)
[2017-10-18] MEDS: Metoprolol Succinate XL TAB* 25 MG PO SCH (10:21)
[2017-10-18] MEDS: Donepezil TAB* 5 MG PO SCH (10:22)
[2017-10-18] MEDS: predniSONE TAB* 50 MG PO SCH (10:22)
[2017-10-18] MEDS: guaiFENesin ER TAB 600 MG PO SCH ×2 (10:22→20:33)
[2017-10-18] MEDS: Insulin LISPRO* 1 UNITS UNIT SUBCUT SCH ×7 (10:22→20:41)
[2017-10-18] MEDS: Potassium Chlor TAB* 10 MEQ TAB.ER PO SCH (10:22)
[2017-10-18] MEDS: CMCS Escitalopram (NF) 10 MG TAB PO SCH (10:52)
[2017-10-18] MEDS: Oseltamivir CAP* 30 MG CAP PO SCH ×2 (10:52→20:33)
[2017-10-18] MEDS: CMCS Rosuvastatin (NF) 5 MG TAB PO SCH (10:52)
--- NOTE | 2017-10-18 13:55 | PN ---
Subjective Date of Service: 10/18/17 Interval History: Patient reports she is feeling better today, continues to have a cough. Reports appetite is improving. Denies SOB/CP. No fevers or chills Family History: Unchanged from Admission Social History: Unchanged from Admission Past Medical History: Unchanged from Admission Objective Active Medications: Acetaminophen (Tylenol Tab*) 650 mg PO Q6H PRN PRN Reason: FEVER/PAIN Albuterol/Ipratropium (Duoneb (Albuterol 2.5 Mg/Ipratropium 0.5 Mg)) 1 neb INH Q4H PRN PRN Reason: SOB/WHEEZING Last Admin: 10/17/17 20:20 Dose: 1 neb Benzonatate (Tessalon Cap*) 100 mg PO TID PRN PRN Reason: COUGH Last Admin: 10/17/17 00:08 Dose: 100 mg Docusate Sodium (Colace Cap*) [address] [facility] Last Admin: 10/18/17 10:21 Dose: 200 mg Donepezil HCl (Aricept Tab*) [address] [facility] Last Admin: 10/18/17 10:22 Dose: 10 mg Escitalopram Oxalate (Lexapro (Nf)) [address] [facility] Last Admin: 10/18/17 10:52 Dose: 20 mg Guaifenesin (Mucinex*) 1,[address] [facility] Last Admin: 10/18/17 10:22 Dose: 1,200 mg Hydralazine HCl (Apresoline Iv*) 10 mg IV Q4H PRN PRN Reason: Systolic >170 Levofloxacin/Dextrose (Levaquin 750 Mg Ivpremix(*)) 750 mg in 150 mls @ 100 mls /hr IVPB Q24H [facility] Last Admin: 10/17/17 20:53 Dose: 100 mls/hr Insulin Glargine (Lantus(*)) 17 units 0.24 units/kg (17 units) SUBCUT 2100 [facility] Last Admin: 10/17/17 20:55 Dose: 17 units Insulin Human Lispro (Humalog*) [address] [facility] PRN Reason: Protocol Last Admin: 10/18/17 10:22 Dose: 1 units Insulin Human Lispro (Humalog*) [address] [facility] PRN Reason: Protocol Last Admin: 05/14/18 10:23 Dose: Not Given Levothyroxine Sodium (Synthroid Tab*) [address] [facility] Last Admin: 10/18/17 06:06 Dose: 100 mcg Lorazepam (Ativan Inj*) 0.5 mg IV Q8H PRN PRN Reason: ANXIETY Last Admin: 10/17/17 02:44 Dose: 0.5 mg Melatonin (Melatonin (Nf)) 3 mg PO BEDTIME PRN; Protocol PRN Reason: Sleep Memantine (Namenda Tab*) [address] [facility] Last Admin: 10/18/17 10:21 Dose: 10 mg Metoprolol Succinate (Toprol Xl Tab*) [address] [facility] Last Admin: 10/18/17 10:21 Dose: 25 mg Mometasone Furoate/Formoterol Fumar (Dulera 200/5 Mdi*) [address] [facility] Last Admin: 10/18/17 07:42 Dose: 2 puff Morphine Sulfate (Morphine Vial*) 1 mg IV Q2H PRN PRN Reason: tachypnea Omeprazole (Prilosec Cap*) 20 mg PO DAILY@0600 [facility] Last Admin: 10/18/17 06:06 Dose: 20 mg Ondansetron HCl (Zofran Odt Tab*) 4 mg PO Q6H PRN PRN Reason: NAUSEA/VOMITING Oseltamivir Phosphate (Tamiflu Cap*) [address] [facility] Stop: 10/21/17 09:01 Last Admin: 10/18/17 10:52 Dose: 30 mg Potassium Chloride (Klor Con Er Tab*) [address] [facility] Last Admin: 10/18/17 10:22 Dose: 10 meq Prednisone (Deltasone Tab*) [address] [facility] Stop: 10/20/17 09:01 Last Admin: 10/18/17 10:22 Dose: 50 mg Rosuvastatin Calcium (Crestor (Nf)) [address] [facility] PRN Reason: Protocol Last Admin: 10/18/17 10:52 Dose: 5 mg Tramadol HCl (Ultram*) 50 mg PO Q6H PRN PRN Reason: PAIN Vital Signs - 8 hr 10/18/17 10/18/17 10/18/17 07:23 07:42 08:17 Temperature 97.3 F Pulse Rate 76 76 Respiratory 16 18 Rate Blood Pressure 118/65 (mmHg) O2 Sat by Pulse 98 93 Oximetry 10/18/17 11:34 Temperature 97.4 F Pulse Rate 78 Respiratory 18 Rate Blood Pressure 109/50 (mmHg) O2 Sat by Pulse 95 Oximetry Oxygen Devices in Use Now: Nasal Cannula Appearance: kyungdeldick female sitting up in bed in NAD, A+O Eyes: No Scleral Icterus, PERRLA Ears/Nose/Mouth/Throat: NL Teeth, Lips, Gums, Mucous Membranes Moist Neck: NL Appearance and Movements; NL JVP Respiratory: - - clear, slightly diminished Lymphatic: No Cervical Adenopathy Extremities: No Clubbing, Cyanosis Neurological: - - A+Ox3 Lines/Tubes/Other Access: Clean, Dry and Intact Peripheral IV Nutrition: Taking PO's Result Diagrams: 10/19/17 07:09 10/19/17 06:52 Assess/Plan/Problems-Billing Assessment: An 86 y/o female with PMHx HTN, HLD, diastolic HF, insulin dependent DM and a- fib on Warfarin therapy, who presented to ED with sepsis secondary to multifocal pneumonia. - Patient Problems (1) Sepsis Comment: - Resolved - Likely secondary to multifocal pneumonia - IVF and antibiotics - Recent exposure to influenza (influenza negative on admission) did not finish her prophylactic treatment, continue renal modified dose Tamiflu - Supplemental oxygen - Blood and sputum cultures negative. Legionella and S. pneumo antigen negative (2) Pneumonia Comment: - Improving. - Continue levaquin x 5 days. - Continue Prednisone 5 day course (3) Hypertension Comment: - Continue Metoprolol - Hydralazine prn with parameters (4) Supratherapeutic INR Comment: - Resolved - 5 mg vit. K given 10/17 - Check daily INR (5) DM type 2 (diabetes mellitus, type 2) Comment: - BG 54 this AM. - Decrease lantus insulin and continue prn SS coverage - HgbA1c 8.6 (6) Hypothyroidism Comment: - TSH 0.15 - Reduced Synthroid 88 mcg, repeat TSH in 6-8 weeks (7) HX: breast cancer Comment: - Remote - Chronic RUE swelling and lymphedema (8) CHF (congestive heart failure) Comment: Chronic diastolic failure without evidence of acute exacerbation (9) DVT prophylaxis Comment: - Warfarin (10) Full code status Comment: Status and Disposition: Inpatient. Anticipate discharge when medically stable. PT/OT to eval.
[2017-10-18] MEDS: Warfarin TAB(*) 2 MG PO SCH (18:50)
[2017-10-18] MEDS: Levofloxacin 750 MG IVPREMIX(* 750 MG/150 ML BAG IVPB SCH (20:34)
[2017-10-18] MEDS ORDERED: Insulin GLARGINE(*) 1 UNITS UNIT SUBCUT SCH (21:00)
[2017-10-18] MEDS: Benzonatate CAP* 100 MG PO PRN (23:36)
[2017-10-19] MEDS ORDERED: Benzonatate CAP* 100 MG PO ONE (00:51)
[2017-10-19] MEDS: LORazepam INJ* 2 MG/ML 1 ML VIAL IV PRN (02:27)
[2017-10-19] MEDS: Levothyroxine TAB* 88 MCG TAB PO SCH (06:51)
[2017-10-19] MEDS: Omeprazole CAP* 20 MG PO SCH (06:51)
[2017-10-19 07:19] LABS: ABS Basophils 0.1 10^3/ul (0-0.2); ABS Eosinophils 0 10^3/ul (0-0.6); ABS Lymphocytes 2.7 10^3/ul (1.0-4.8); ABS Monocytes 0.9 10^3/ul (0-0.8); ABS Neutrophils 11.6 10^3/ul (1.5-7.7); ABS Nucleated RBC 0 10^3/ul; Eosinophil % 0.2 % (0-6); Hematocrit 37 % (35-47); Lymphocyte % 17.4 % (25-47); Mean Corpuscular HGB Conc 33 g/dl (31-36); Mean Corpuscular Hemoglobin 29 pg (27-31); Mean Corpuscular Volume 88 fL (80-97); Mean Platelet Volume 9.5 um3 (7.4-10.4); Nucleated Red Blood Cells % 0; Platelet Count 313 10^3/ul (150-450); Red Cell Distribution Width 15 % (10.5-15); White Blood Count 15.2 10^3/ul (3.5-10.8)
[2017-10-19 07:23] LABS: INR 2.55 (0.77-1.02)
[2017-10-19 07:33] LABS: EGFR Non-African American 72.5 (>60)
[2017-10-19] MEDS: Mometasone/Formoter 200/5 MDI INH SCH ×2 (07:42→20:05)
[2017-10-19] MEDS: Insulin LISPRO* 1 UNITS UNIT SUBCUT SCH ×8 (08:01→22:21)
--- NOTE | 2017-10-19 08:31 | PN ---
Subjective Date of Service: 10/19/17 Interval History: Ms. Paredes reports that she is feeling better today but she remains quite fatigued with ambulation. She denies chest pain, SOB, nausea, or abdominal pain. Family History: Unchanged from Admission Social History: Unchanged from Admission Past Medical History: Unchanged from Admission Objective Active Medications: Acetaminophen (Tylenol Tab*) 650 mg PO Q6H PRN Albuterol/Ipratropium (Duoneb (Albuterol 2.5 Mg/Ipratropium 0.5 Mg)) 1 neb INH Q4H PRN Benzonatate (Tessalon Cap*) 100 mg PO TID PRN Docusate Sodium (Colace Cap*) 200 mg PO BID [facility] Donepezil HCl (Aricept Tab*) 10 mg PO DAILY [facility] Escitalopram Oxalate (Lexapro (Nf)) 20 mg PO DAILY [facility] Guaifenesin (Mucinex*) 1,200 mg PO BID [facility] Hydralazine HCl (Apresoline Iv*) 10 mg IV Q4H PRN Levofloxacin/Dextrose (Levaquin 750 Mg Ivpremix(*)) 750 mg in 150 mls @ 100 mls /hr IVPB Q24H [facility] Insulin Glargine (Lantus(*)) 8 units SUBCUT 2100 [facility] Insulin Human Lispro (Humalog*) 0 units SUBCUT AC [facility] Insulin Human Lispro (Humalog*) 0 units SUBCUT ACHS [facility] Levothyroxine Sodium (Synthroid Tab*) 88 mcg PO DAILY@0600 [facility] Lorazepam (Ativan Inj*) 0.5 mg IV Q8H PRN Melatonin (Melatonin (Nf)) 3 mg PO BEDTIME PRN; Protocol Memantine (Namenda Tab*) 10 mg PO BID [facility] Metoprolol Succinate (Toprol Xl Tab*) 25 mg PO DAILY [facility] Mometasone Furoate/Formoterol Fumar (Dulera 200/5 Mdi*) 2 puff INH BID [facility] Morphine Sulfate (Morphine Vial*) 1 mg IV Q2H PRN Omeprazole (Prilosec Cap*) 20 mg PO DAILY@0600 [facility] Ondansetron HCl (Zofran Odt Tab*) 4 mg PO Q6H PRN Oseltamivir Phosphate (Tamiflu Cap*) 30 mg PO BID [facility] Potassium Chloride (Klor Con Er Tab*) 10 meq PO DAILY [facility] Prednisone (Deltasone Tab*) 50 mg PO DAILY [facility] Rosuvastatin Calcium (Crestor (Nf)) 5 mg PO DAILY [facility] Tramadol HCl (Ultram*) 50 mg PO Q6H PRN Warfarin Sodium (Coumadin Tab(*)) 2 mg PO DAILY@1700 [facility] Vital Signs: Temp Pulse Resp BP Pulse Ox 97.4 F 75 16 117/55 97 10/19/17 07:25 10/19/17 07:44 10/19/17 10:32 10/19/17 07:25 10/19/17 07:44 Oxygen Devices in Use Now: Nasal Cannula Appearance: Female lying in bed in NAD Eyes: No Scleral Icterus Ears/Nose/Mouth/Throat: Mucous Membranes Moist Neck: Trachea Midline Respiratory: Symmetrical Chest Expansion and Respiratory Effort, Clear to Auscultation Cardiovascular: NL Sounds; No Murmurs; No JVD, No Edema Abdominal: NL Sounds; No Tenderness; No Distention Lymphatic: No Cervical Adenopathy Extremities: - - R UE edema noted Skin: No Rash or Ulcers Neurological: Alert and Oriented x 3, NL Muscle Strength and Tone Nutrition: Taking PO's Result Diagrams: 10/19/17 07:09 10/19/17 06:52 Microbiology and Other Data: . Diagnostic Imaging: . EKG Data: . Assess/Plan/Problems-Billing Assessment: Ms. Paredes is an 86 y/o female with PMHx HTN, HLD, diastolic HF, insulin dependent DM and a-fib on Warfarin therapy, who presented to ED with sepsis secondary to multifocal pneumonia. - Patient Problems (1) Pneumonia Comment: - Improving. - Continue levaquin x 5 days. - Continue Prednisone 5 day course (2) Sepsis Comment: - Resolved - Likely secondary to multifocal pneumonia - IVF and antibiotics - Recent exposure to influenza (influenza negative on admission) did not finish her prophylactic treatment, continue renal modified dose Tamiflu - Supplemental oxygen - Blood and sputum cultures negative. Legionella and S. pneumo antigen negative (3) Supratherapeutic INR Comment: - Resolved - 5 mg vit. K given 10/17 - Check daily INR (4) Atrial fibrillation Comment: - In SR. - Continue warfarin with INR 2.55. (5) DM type 2 (diabetes mellitus, type 2) Comment: - BG 54 this AM. - Decrease lantus insulin and continue prn SS coverage - HgbA1c 8.6 (6) Diastolic heart failure Comment: - Will hold diuretics in setting of sepsis (7) Hypertension Comment: - Continue Metoprolol - Hydralazine prn with parameters (8) Hyperlipidemia Comment: - Continue rosuvastatin. (9) Hypothyroidism Comment: - TSH 0.15 - Reduced Synthroid 88 mcg, repeat TSH in 6-8 weeks (10) Dementia Comment: - Cont Namenda, Aricept (11) HX: breast cancer Comment: - Remote - Chronic RUE swelling and lymphedema (12) DVT prophylaxis Comment: - Warfarin (13) Full code status Comment: Status and Disposition: Inpatient. Anticipate discharge when medically stable. PT/OT to eval.
[2017-10-19] MEDS: CMCS Rosuvastatin (NF) 5 MG TAB PO SCH (09:41)
[2017-10-19] MEDS: Donepezil TAB* 5 MG PO SCH (09:41)
[2017-10-19] MEDS: Potassium Chlor TAB* 10 MEQ TAB.ER PO SCH (09:41)
[2017-10-19] MEDS: predniSONE TAB* 50 MG PO SCH (09:42)
[2017-10-19] MEDS: guaiFENesin ER TAB 600 MG PO SCH ×2 (09:42→21:25)
[2017-10-19] MEDS: Memantine TAB* 10 MG PO SCH ×2 (09:42→21:26)
[2017-10-19] MEDS: Oseltamivir CAP* 30 MG CAP PO SCH ×2 (09:42→21:25)
[2017-10-19] MEDS: CMCS Escitalopram (NF) 10 MG TAB PO SCH (09:42)
[2017-10-19] MEDS: Docusate CAP* 100 MG PO SCH ×2 (09:42→21:25)
[2017-10-19] MEDS: Metoprolol Succinate XL TAB* 25 MG PO SCH (09:43)
[2017-10-19] MEDS ORDERED: Insulin GLARGINE(*) 1 UNITS UNIT SUBCUT SCH (15:00)
[2017-10-19] MEDS: Warfarin TAB(*) 2 MG PO SCH (18:02)
[2017-10-19] MEDS: Levofloxacin 750 MG IVPREMIX(* 750 MG/150 ML BAG IVPB SCH (21:26)
[2017-10-19] MEDS: Benzonatate CAP* 100 MG PO PRN (23:25)
[2017-10-20] MEDS: Levothyroxine TAB* 88 MCG TAB PO SCH (05:50)
[2017-10-20] MEDS: Omeprazole CAP* 20 MG PO SCH (05:50)
[2017-10-20 06:09] LABS: INR 4.04 (0.77-1.02)
[2017-10-20] MEDS ORDERED: Polyethylene Glycol 3350* 17 GM PACKET PO PRN (06:26)
[2017-10-20] MEDS ORDERED: Magnesium Hydroxide LIQ* 30 ML UDC PO PRN (06:26)
[2017-10-20] MEDS: Insulin LISPRO* 1 UNITS UNIT SUBCUT SCH ×7 (07:47→21:22)
[2017-10-20] MEDS: Mometasone/Formoter 200/5 MDI INH SCH ×2 (07:49→20:54)
[2017-10-20] MEDS: Metoprolol Succinate XL TAB* 25 MG PO SCH (09:59)
[2017-10-20] MEDS: Donepezil TAB* 5 MG PO SCH (09:59)
[2017-10-20] MEDS: Potassium Chlor TAB* 10 MEQ TAB.ER PO SCH (09:59)
[2017-10-20] MEDS: guaiFENesin ER TAB 600 MG PO SCH ×2 (09:59→21:20)
[2017-10-20] MEDS: CMCS Rosuvastatin (NF) 5 MG TAB PO SCH (09:59)
[2017-10-20] MEDS: Memantine TAB* 10 MG PO SCH ×2 (09:59→21:21)
[2017-10-20] MEDS: predniSONE TAB* 50 MG PO SCH (10:00)
[2017-10-20] MEDS: Oseltamivir CAP* 30 MG CAP PO SCH ×2 (10:00→21:21)
[2017-10-20] MEDS: CMCS Escitalopram (NF) 10 MG TAB PO SCH (10:00)
[2017-10-20] MEDS: Docusate CAP* 100 MG PO SCH ×2 (10:01→21:21)
--- NOTE | 2017-10-20 11:43 | PN ---
Subjective Date of Service: 10/20/17 Interval History: Ms. Paredes reports a persistent productive cough. She also continues to feel weak with ambulation but remains hopeful that she will be able to return to independent living soon. She denies chest pain, SOB, nausea, or abdominal pain. Family History: Unchanged from Admission Social History: Unchanged from Admission Past Medical History: Unchanged from Admission Objective Active Medications: Acetaminophen (Tylenol Tab*) 650 mg PO Q6H PRN Albuterol/Ipratropium (Duoneb (Albuterol 2.5 Mg/Ipratropium 0.5 Mg)) 1 neb INH Q4H PRN Benzonatate (Tessalon Cap*) 100 mg PO TID PRN Docusate Sodium (Colace Cap*) 200 mg PO BID [facility] Donepezil HCl (Aricept Tab*) 10 mg PO DAILY [facility] Escitalopram Oxalate (Lexapro (Nf)) 20 mg PO DAILY [facility] Guaifenesin (Mucinex*) 1,200 mg PO BID [facility] Hydralazine HCl (Apresoline Iv*) 10 mg IV Q4H PRN Levofloxacin/Dextrose (Levaquin 750 Mg Ivpremix(*)) 750 mg in 150 mls @ 100 mls /hr IVPB Q24H [facility] Insulin Human Lispro (Humalog*) 0 units SUBCUT AC [facility] Insulin Human Lispro (Humalog*) 0 units SUBCUT ACHS [facility] Levothyroxine Sodium (Synthroid Tab*) 88 mcg PO DAILY@0600 [facility] Lorazepam (Ativan Inj*) 0.5 mg IV Q8H PRN Magnesium Hydroxide (Milk Of Magnesia Liq*) 30 ml PO Q6H PRN Melatonin (Melatonin (Nf)) 3 mg PO BEDTIME PRN; Protocol Memantine (Namenda Tab*) 10 mg PO BID [facility] Metoprolol Succinate (Toprol Xl Tab*) 25 mg PO DAILY [facility] Mometasone Furoate/Formoterol Fumar (Dulera 200/5 Mdi*) 2 puff INH BID [facility] Morphine Sulfate (Morphine Vial*) 1 mg IV Q2H PRN Omeprazole (Prilosec Cap*) 20 mg PO DAILY@0600 [facility] Ondansetron HCl (Zofran Odt Tab*) 4 mg PO Q6H PRN Oseltamivir Phosphate (Tamiflu Cap*) 30 mg PO BID [facility] Polyethylene Glycol/Electrolytes (Miralax*) 17 gm PO DAILY [facility] Potassium Chloride (Klor Con Er Tab*) 10 meq PO DAILY [facility] Rosuvastatin Calcium (Crestor (Nf)) 5 mg PO DAILY [facility] Tramadol HCl (Ultram*) 50 mg PO Q6H PRN Warfarin Sodium (Coumadin Tab(*)) 2 mg PO DAILY@1700 [facility] Vital Signs: Temp Pulse Resp BP Pulse Ox 97.5 F 69 16 124/50 100 10/20/17 02:42 10/20/17 07:29 10/20/17 10:27 10/20/17 07:29 10/20/17 07:29 Oxygen Devices in Use Now: Nasal Cannula Appearance: Elderly female lying in bed in NAD Eyes: No Scleral Icterus Neck: NL Appearance and Movements; NL JVP, Trachea Midline Respiratory: Symmetrical Chest Expansion and Respiratory Effort, Clear to Auscultation Cardiovascular: NL Sounds; No Murmurs; No JVD Abdominal: NL Sounds; No Tenderness; No Distention Extremities: - - R UE edema Skin: No Rash or Ulcers Neurological: Alert and Oriented x 3, NL Muscle Strength and Tone Nutrition: Taking PO's Result Diagrams: 10/19/17 07:09 10/19/17 06:52 Microbiology and Other Data: . Diagnostic Imaging: . EKG Data: . Assess/Plan/Problems-Billing Assessment: Ms. Paredes is an 86 y/o female with PMHx HTN, HLD, diastolic HF, insulin dependent DM and a-fib on Warfarin therapy, who presented to ED with sepsis secondary to multifocal pneumonia. - Patient Problems (1) Pneumonia Comment: - Improving, now on 2L NC. - WBC up to 15 today but CRP 300 -> 50. - Continue levaquin x 5 days. - Continue Prednisone 5 day course - Continue tamiflu for influenza prophylaxis. (2) Sepsis Comment: - Resolved - Secondary to pneumonia (3) Supratherapeutic INR Comment: - INR 4 today - Hold warfarin, recheck INR in AM (4) Atrial fibrillation Comment: - In SR. - Hold warfarin with supratherapeutic INR. (5) DM type 2 (diabetes mellitus, type 2) Comment: - BG 50s again this AM. - Stop lantus insulin and continue prn SS and carb coverage - HgbA1c 8.6 (6) Diastolic heart failure Comment: - Appears euvolemic. - Will hold diuretics in setting of sepsis (7) Hypertension Comment: - Continue Metoprolol - Hydralazine prn with parameters (8) Hyperlipidemia Comment: - Continue rosuvastatin. (9) Hypothyroidism Comment: - TSH 0.15 - Reduced Synthroid 88 mcg, repeat TSH in 6-8 weeks (10) Dementia Comment: - Cont Namenda, Aricept (11) HX: breast cancer Comment: - Remote - Chronic RUE swelling and lymphedema (12) DVT prophylaxis Comment: - Warfarin (13) Full code status Comment: Status and Disposition: Inpatient. Anticipate discharge when medically stable. PT/OT to eval.
[2017-10-20] MEDS ORDERED: Warfarin TAB(*) 2 MG PO SCH (11:48)
[2017-10-20] MEDS ORDERED: Levofloxacin TAB* 250 MG PO SCH (21:00)
[2017-10-21] MEDS: Benzonatate CAP* 100 MG PO PRN ×2 (01:17→05:34)
[2017-10-21] MEDS: Levothyroxine TAB* 88 MCG TAB PO SCH (05:34)
[2017-10-21] MEDS: Omeprazole CAP* 20 MG PO SCH (05:34)
[2017-10-21 06:19] LABS: INR 4.97 (0.77-1.02)
[2017-10-21] MEDS: Insulin LISPRO* 1 UNITS UNIT SUBCUT SCH ×3 (07:51→11:24)
[2017-10-21] MEDS: CMCS Rosuvastatin (NF) 5 MG TAB PO SCH (07:52)
[2017-10-21] MEDS: Docusate CAP* 100 MG PO SCH (07:52)
[2017-10-21] MEDS: CMCS Escitalopram (NF) 10 MG TAB PO SCH (07:52)
[2017-10-21] MEDS: Oseltamivir CAP* 30 MG CAP PO SCH (07:53)
[2017-10-21] MEDS: guaiFENesin ER TAB 600 MG PO SCH (07:53)
[2017-10-21] MEDS: Potassium Chlor TAB* 10 MEQ TAB.ER PO SCH (07:53)
[2017-10-21] MEDS: Donepezil TAB* 5 MG PO SCH (07:53)
[2017-10-21] MEDS: Memantine TAB* 10 MG PO SCH (07:53)
[2017-10-21] MEDS: Metoprolol Succinate XL TAB* 25 MG PO SCH (07:53)
[2017-10-21 08:06] VITALS: BP 128/72
[2017-10-21] MEDS: Mometasone/Formoter 200/5 MDI INH SCH (08:22)
--- NOTE | 2017-10-21 08:57 | PN ---
Subjective Date of Service: 10/21/17 Interval History: Ms. Paredes reports feeling relatively well today. She has a persistent cough but otherwise denies complaint. She specifically denies chest pain, SOB, nausea , or abdominal pain and is tolerating oral intake well. Family History: Unchanged from Admission Social History: Unchanged from Admission Past Medical History: Unchanged from Admission Objective Active Medications: Acetaminophen (Tylenol Tab*) 650 mg PO Q6H PRN Albuterol/Ipratropium (Duoneb (Albuterol 2.5 Mg/Ipratropium 0.5 Mg)) 1 neb INH Q4H PRN Benzonatate (Tessalon Cap*) 100 mg PO TID PRN Docusate Sodium (Colace Cap*) 200 mg PO BID [facility] Donepezil HCl (Aricept Tab*) 10 mg PO DAILY [facility] Escitalopram Oxalate (Lexapro (Nf)) 20 mg PO DAILY [facility] Guaifenesin (Mucinex*) 1,200 mg PO BID [facility] Insulin Human Lispro (Humalog*) 0 units SUBCUT AC [facility] Insulin Human Lispro (Humalog*) 0 units SUBCUT ACHS [facility] Levofloxacin (Levaquin Tab*) 750 mg PO 2100 [facility] Levothyroxine Sodium (Synthroid Tab*) 88 mcg PO DAILY@0600 [facility] Lorazepam (Ativan Inj*) 0.5 mg IV Q8H PRN Magnesium Hydroxide (Milk Of Magnesia Liq*) 30 ml PO Q6H PRN Melatonin (Melatonin (Nf)) 3 mg PO BEDTIME PRN; Protocol Memantine (Namenda Tab*) 10 mg PO BID [facility] Metoprolol Succinate (Toprol Xl Tab*) 25 mg PO DAILY [facility] Mometasone Furoate/Formoterol Fumar (Dulera 200/5 Mdi*) 2 puff INH BID [facility] Morphine Sulfate (Morphine Vial*) 1 mg IV Q2H PRN Omeprazole (Prilosec Cap*) 20 mg PO DAILY@0600 [facility] Ondansetron HCl (Zofran Odt Tab*) 4 mg PO Q6H PRN Oseltamivir Phosphate (Tamiflu Cap*) 30 mg PO BID [facility] Polyethylene Glycol/Electrolytes (Miralax*) 17 gm PO DAILY [facility] Potassium Chloride (Klor Con Er Tab*) 10 meq PO DAILY [facility] Rosuvastatin Calcium (Crestor (Nf)) 5 mg PO DAILY [facility] Tramadol HCl (Ultram*) 50 mg PO Q6H PRN Vital Signs: Temp Pulse Resp BP Pulse Ox 98.2 F 70 16 128/72 98 10/21/17 07:55 10/21/17 07:55 10/21/17 08:00 10/21/17 07:55 10/21/17 07:55 Oxygen Devices in Use Now: Nasal Cannula Appearance: Elderly female lying in bed in NAD Eyes: No Scleral Icterus Ears/Nose/Mouth/Throat: Mucous Membranes Moist Neck: Trachea Midline Respiratory: Symmetrical Chest Expansion and Respiratory Effort, Clear to Auscultation Cardiovascular: NL Sounds; No Murmurs; No JVD, No Edema Abdominal: No Hepatosplenomegaly Lymphatic: No Cervical Adenopathy Extremities: No Edema Skin: No Rash or Ulcers Neurological: Alert and Oriented x 3, NL Muscle Strength and Tone Nutrition: Taking PO's Result Diagrams: 10/19/17 07:09 10/19/17 06:52 Microbiology and Other Data: . Diagnostic Imaging: . EKG Data: . Assess/Plan/Problems-Billing Assessment: Ms. Paredes is an 86 y/o female with PMHx HTN, HLD, diastolic HF, insulin dependent DM and a-fib on Warfarin therapy, who presented to ED with sepsis secondary to multifocal pneumonia. - Patient Problems (1) Pneumonia Comment: - Improving, now on 2L NC. - WBC up but CRP 300 -> 50. - Complete course of levaquin x 5 days. - Complete course of Prednisone 5 days. - Continue tamiflu for influenza prophylaxis. (2) Sepsis Comment: - Resolved - Secondary to pneumonia (3) Supratherapeutic INR Comment: - INR 4.9 today - Hold warfarin, recheck INR in AM (4) Atrial fibrillation Comment: - In SR. - Hold warfarin with supratherapeutic INR. (5) DM type 2 (diabetes mellitus, type 2) Comment: - BG well controlled. - Stop lantus insulin and continue prn SS and carb coverage - HgbA1c 8.6 (6) Diastolic heart failure Comment: - Appears euvolemic. - Will hold diuretics in setting of sepsis (7) Hypertension Comment: - Continue Metoprolol (8) Hyperlipidemia Comment: - Continue rosuvastatin. (9) Hypothyroidism Comment: - TSH 0.15 - Reduced Synthroid 88 mcg, repeat TSH in 6-8 weeks (10) Dementia Comment: - Cont Namenda, Aricept (11) HX: breast cancer Comment: - Remote - Chronic RUE swelling and lymphedema (12) DVT prophylaxis Comment: - Warfarin (13) Full code status Comment: Status and Disposition: Inpatient. Discharge to [facility].
[2017-10-21] MEDS ORDERED: Levofloxacin TAB* 250 MG PO ONE (09:00)
--- NOTE | 2017-10-21 11:29 | DS ---
CC: Dr. Price* DATE OF ADMISSION: 10/16/2017. DATE OF DISCHARGE: 10/21/2017. ATTENDING PHYSICIAN: Dr. Vijay Proctor* (dictation provided by Abbey Mejia NP). PRINCIPAL DIAGNOSES: 1. Pneumonia, community acquired. 2. Influenza exposure, status post treatment with Tamiflu. 3. Hypercoagulable state, Warfarin on hold. SECONDARY DIAGNOSES: 1. Atrial fibrillation. 2. Chronic diastolic congestive heart failure. 3. Type 2 diabetes, insulin independent. 4. Hypertension. 5. Hyperlipidemia. 6. Hypothyroidism. 7. Breast cancer, status post right mastectomy with right upper extremity lymphedema. 8. Dementia. MEDICATIONS OUTPATIENT: 1. Vitamin B complex one cap p.o. daily. 2. Loratadine 5 mg p.o. daily. 3. Cholecalciferol 50,000 units p.o. weekly. 4. Metoprolol Succinate 25 mg p.o. daily. 5. Furosemide 20 mg p.o. daily. 6. Fluticasone nasal spray two sprays both nares daily. 7. Namenda 10 mg p.o. b.i.d. 8. Donepezil 10 mg p.o. daily. 9. Rabeprazole 20 mg p.o. daily. 10. Potassium Chloride 10 mEq p.o. daily. 11. Lexapro 20 mg p.o. daily. 12. Rosuvastatin 5 mg p.o. daily. 13. Fluticasone one puff inhaled daily. 14. Guaifenesin ER 1200 mg p.o. b.i.d. 15. Levothyroxine 88 mcg p.o. daily (new decreased dose). 16. Docusate 200 mg p.o. b.i.d. 17. Benzonatate 100 mg p.o. t.i.d. prn. 18. Albuterol ipratropium nebulizer inhaled q.4 hours prn. 19. Tylenol 650 mg p.o. q.6 hours prn. HOSPITAL COURSE: Ms. Paredes is an 86-year-old female with a past medical history of diabetes, hypertension, and hyperlipidemia who presented to the hospital on 10/16/2017 with concern for malaise. Please see the dictated history and physical from Dr. Tejinder Alvarez for complete details. In brief, the patient had a cough with congestion and fever for about two weeks and had been reluctant to come to the hospital. She became increasingly fatigued and weak and therefore ultimately presented on 10/16/2017. She was also exposed to her who had influenza and though given a prophylactic dose of Oseltamivir, she only took three days worth due to concern of vomiting on the third dose. In the emergency room, the patient had an influenza swab which was negative. She did meet sepsis criteria with tachycardia, tachypnea, and fever. Chest x- ray shows concern for pneumonia. Her CRP was greater than 300. Ms. Paredes was admitted to the hospital. She was treated with Levaquin IV as well as Prednisone due to her significantly elevated CRP. With this, she has had good, though slow improvement. Today, she is down to two liters nasal cannula. Her fever has resolved. Her tachycardia has resolved. Her CRP was rechecked and was down to 49.74 on 10/20/2017. Ms. Paredes continues to need assistance with mobility as she is deconditioned after her prolonged illness. She is contact guard assist at times, but at other times needs 2+ assistance, especially in the middle of the night and is deemed unsafe for discharge to home. She will need rehab at a short-term rehab facility and has been accepted at [facility]. During this hospitalization, Ms. Paredes's Lantus was slowly decreased as she continued to have low blood glucose in the a.m. At this point, she is completely off her home Lantus which had been 37 units a day. We have also held her Glipizide. With this, her blood glucose has been running 50 to 250. I am noting this here and would recommend that her blood glucose be monitored closely at [facility] and that her Glipizide and Lantus be initiated if her blood glucose is uncontrolled. I also note that the patient was hypercoagulable with an INR of 11.43. This peaked at 17.25 on 10/17/2017. She had no evidence of bleeding. Her Coumadin was held and she was given vitamin K. Repeat INR on 10/18/2017 was 2.56. At that point, her low dose Warfarin was resumed. However, today, 10/21/2017, her INR is now 4.97. She has had no Coumadin on either October 20 or October 21 and I recommend this is held and that INR be watched closely. The only other change was that her TSH was noted to be 0.15 and therefore her Levothyroxine was decreased from 100 mcg to 88 mcg and her TSH be rechecked in four to six weeks. DISPOSITION: To [facility]. DIET: Low carb, low fat, low salt. FOLLOW-UP PLANS: 1. Please follow-up with the providers there at [facility] regarding monitoring of blood glucose, INR, and a TSH check in four to six weeks. 2. Please follow-up with Dr. Price at the time of discharge. Approximately 60 minutes were spent in the discharge of this patient, more than half that time was spent with the patient at the bedside reviewing the events leading up to and during this hospitalization, performing the physical examination, and reviewing my plan of care. ABBEY MEJIA NP [id number]/[facility] #: [id number] [place]
== END 2017-10-21 12:00 | DRG 871 ==
LOC: ED 17:15 → MED 19:51
PROVIDERS: ADMIT Hospitalist; ATTEND Student in an Organized Health Care Education/Training Program
DX: A41.9 Sepsis, unspecified organism (principal); J18.9 Pneumonia, unspecified organism; I50.32 Chronic diastolic (congestive) heart failure; J44.0 Chronic obstructive pulmonary disease with (acute) lower respiratory infection; I48.91 Unspecified atrial fibrillation; I11.0 Hypertensive heart disease with heart failure; F03.90 Unspecified dementia, unspecified severity, without behavioral disturbance, psychotic disturbance, mood disturbance, and anxiety; E11.9 Type 2 diabetes mellitus without complications; E78.00 Pure hypercholesterolemia, unspecified; E03.9 Hypothyroidism, unspecified; K21.9 Gastro-esophageal reflux disease without esophagitis; M19.90 Unspecified osteoarthritis, unspecified site; K58.9 Irritable bowel syndrome, unspecified; I44.0 Atrioventricular block, first degree; E83.42 Hypomagnesemia; R79.1 Abnormal coagulation profile; F41.9 Anxiety disorder, unspecified; I89.0 Lymphedema, not elsewhere classified; Z20.828 Contact with and (suspected) exposure to other viral communicable diseases; F32.9 Major depressive disorder, single episode, unspecified; Z90.11 Acquired absence of right breast and nipple; Z85.3 Personal history of malignant neoplasm of breast; Z92.21 Personal history of antineoplastic chemotherapy; Z83.3 Family history of diabetes mellitus; Z98.51 Tubal ligation status; Z88.5 Allergy status to narcotic agent; Z88.0 Allergy status to penicillin; Z88.8 Allergy status to other drugs, medicaments and biological substances; Z88.1 Allergy status to other antibiotic agents; Z91.041 Radiographic dye allergy status; Z87.11 Personal history of peptic ulcer disease; Z80.3 Family history of malignant neoplasm of breast; Z79.51 Long term (current) use of inhaled steroids; Z90.89 Acquired absence of other organs
CPT/HCPCS: 36415; 71045; 80048; 80053; 82550; 82553; 83036; 83605; 83690; 83735; 83880; 84443; 84484; 85025; 85610; 85730; 86140; 87040; 87070; 87205; 87502; 93005; 94640; 99284; A9270-GY; G8978-GP-CJ; G8979-GP-CI; G8987-GO-CL; G8988-GO-CK; J1940; J2060; J7512